=== PATIENT | male | born 1960 | race African-American/Black ===

== ENCOUNTER 2019-02-09 11:29 | Inpatient (IN) ==
[2019-02-09] MEDS ORDERED: NITROGLYCERIN SL ONE (11:54)
[2019-02-09] MEDS ORDERED: ANTIVERT PO ONE (11:54)
[2019-02-09] MEDS ORDERED: ASPIRIN PO ONE (11:54)
--- NOTE | 2019-02-09 12:12 | EKG Report ---
Test Performed on : 02/09/2019 11:44:59 AM Test Reason : DIZZY Blood Pressure : / mmHG Vent. Rate : 073 BPM Atrial Rate : 073 BPM P-R Int : 170 ms QRS Dur : 100 ms QT Int : 408 ms P-R-T Axes : 062 -26 011 degrees QTc Int : 449 ms Normal sinus rhythm. Voltage criteria for left ventricular hypertrophy Abnormal ECG When compared with ECG of 18-JAN-2019 01:12, (Unconfirmed) No significant change was found Unconfirmed Result
[2019-02-09 12:38] LABS: INR 0.94; PROTIME 12.7 Seconds (11.0-16.0)
[2019-02-09 12:39] LABS: PTT 28.4 Seconds (22.3-41.8)
--- NOTE | 2019-02-09 12:46 | Diag Imaging Result Doc PS360 ---
EXAM: CHEST-1 VIEW 02/09/2019 HISTORY: SOB TECHNIQUE: AP upright COMMENT: There is obscuration of the left hemidiaphragm. Some of this may be due to differences in projection compared to 12/01/2018 however the possibility of atelectasis or pneumonia in the left lower lobe cannot be excluded. Further evaluation with lateral may be desirable. IMPRESSION: Questionable atelectasis versus pneumonia left lower lobe. Electronically signed by Omar Kiesr 02/09/2019 12:44 PM
[2019-02-09 12:48] LABS: BASO# 0.04 X1000 (0.0-0.2); BASO% 0.5 % (0.0-0.8); EOS# 0.44 X1000 (0.0-0.7); EOS% 5.2 % (0.0-10.0); HEMATOCRIT 40.7 % (42.0-52.0); HEMOGLOBIN 13.3 g/dL (14.0-18.0); IMM GRAN# 0.03 X1000 (0.0-0.04); IMM GRAN% 0.4 % (0.0-0.5); LYMPH# 3.11 X1000 (1.2-3.4); MCH 24.4 PG (27-31); MCHC 32.7 g/dL (33-37); MCV 74.7 FL (81-99); MONO# 0.77 X1000 (0.11-0.59); MONO% 9.2 % (1.7-9.3); MPV 11.3 FL (7.4-10.4); NEUT# 4.02 X1000 (1.4-6.5); NEUT% 47.7 % (42.2-75.2); PLT 219 X1000 (130-400); RBC 5.45 XMIL (4.7-6.1); RDW 13.6 % (11.5-14.5); WBC 8.41 X1000 (4.8-10.8)
--- NOTE | 2019-02-09 12:48 | Diag Imaging Result Doc PS360 ---
EXAM: CT HEAD W/O CONTRAST 02/09/2019 HISTORY: DIZZY TECHNIQUE: This exam was performed using automated exposure control, adjustment of mA or kV according to patient size, and/or use of iterative reconstruction technique. COMMENT: There is an abnormal lucency posteriorly in the right cerebellar hemisphere which was also present on 05/08/2018. There is some subcortical white matter lucency in the posterior frontal region on the right side which was also apparently present previously. There is no evidence of mass effect, bleed, or abnormal extra-axial fluid collection. The calvarium is intact. There is a mucous retention cyst in the left frontal sinus and mucosal thickening is present in both ethmoid and maxillary sinuses. There is bilateral maxillary antral window formation. Compared to the previous study the inflammatory changes seen in the maxillary sinuses previously have markedly improved. IMPRESSION: Chronic ischemic microvascular changes. Old right cerebellar infarct. Improved sinusitis. Electronically signed by Omar Kiser 02/09/2019 12:46 PM
[2019-02-09 12:54] LABS: AGAP 11; ALB/GLOB RATIO 1.1; ALBUMIN 3.4 g/dL (3.5-5.0); ALKALINE PHOSPHATASE 176 U/L (32-122); BUN 9 mg/dL (8-22); CALCIUM 9.3 mg/dL (8.8-10.2); CHLORIDE 103 mmol/L (98-107); COSMO 279; CREATININE 0.6 mg/dL (0.7-1.2); ESTIMATED GFR > 60; GLUCOSE 117 mg/dL (70-104); GOT 64 U/L (10-34); GPT 51 U/L (10-44); POTASSIUM 3.1 mmol/L (3.5-5.1); SODIUM 140 mmol/L (136-145); TCO2 26 mmol/L (25-35); TOTAL BILIRUBIN 0.25 mg/dL (0.20-1.00); TOTAL PROTEIN 6.5 g/dL (6.3-8.3)
[2019-02-09 12:55] LABS: CK PROFILE 77 U/L (24-204)
[2019-02-09] MEDS ORDERED: MORPHINE IV ONE (13:04)
--- NOTE | 2019-02-09 14:35 | PROVIDER DOCUMENTATION ---
This chart was entered by Sri Coffey Scribe, acting as scribe for Darwin Flores MD. HPI-General Adult - General Chief Complaint: Dizziness Stated Complaint: BP PROBLEM Time Seen by Provider: 02/09/19 11:51 Source: patient Allergies/Adverse Reactions: Patient Allergies Allergy/AdvReac Type Severity Reaction Status Date / Time ampicillin Allergy ITCHING Verified 02/09/19 14:26 naproxen Allergy ITCHING Verified 02/09/19 14:26 Home Medications: Home Medication List Medication Instructions Recorded Confirmed Last Taken Type Hydrochlorothiazide 25 mg PO DAILY #30 tab 08/24/18 10/12/18 Unknown Rx Sucralfate [Carafate] 1 gm PO AC + HS #120 tab 08/24/18 10/12/18 Unknown Rx Cyclobenzaprine [Flexeril] 10 mg PO QHS PRN 10/12/18 10/12/18 Unknown History Albuterol Sulfate [Albuterol 18 gm INHALATION Q2-4H PRN PRN #1 10/14/18 Unknown Rx Sulfate Hfa] hfa.aer.ad Diltiazem C.d. [Cardizem Cd] 240 mg PO DAILY #30 cap 10/14/18 Unknown Rx Fluticasone/Vilanterol [Breo 1 ea INHALATION DAILY #1 blst.w.dev 10/14/18 Unknown Rx Ellipta 200-25 Mcg INH] Levofloxacin [Levaquin] 750 mg PO DAILY #7 tab 10/14/18 Unknown Rx Omeprazole 40 mg PO DAILY #30 capsule. 10/31/18 Unknown Rx Azithromycin [Zithromax Z-Ángel] 250 mg PO DIRECTED #1 pkg 12/01/18 Unknown Rx D-Methorphan/P-Epd/Bpm [Bromfed Dm 5 ml PO Q4H PRN #120 ml 12/01/18 Unknown Rx Liquid] Prednisone 20 mg PO DIRECTED #18 tab 12/01/18 Unknown Rx Albuterol Sulfate 2.5 mg INHALATION Q4H PRN PRN #30 12/02/18 Unknown Rx vial.neb Albuterol Sulfate [Albuterol 8.5 gm INHALATION Q4-6H PRN PRN #1 12/02/18 Unknown Rx Sulfate Hfa] hfa.aer.ad Ibuprofen [Ibu] 400 mg PO Q6HR PRN #20 tab 01/07/19 Unknown Rx Aspirin/Acetaminophen/Caffeine 1 ea PO Q6H PRN PRN #30 tab 01/08/19 Unknown Rx [Excedrin Migraine] Fluticasone 50 Mcg Nasal [place] 1 spray INTRANASAL DAILY #1 bottle 01/08/19 Unknown Rx [Flonase] Nystatin Powder [Mycostatin Powder] 1 applicatn TOP BID #1 bottle 01/08/19 Unknown Rx Sulfamethoxazole/Trimethoprim 1 ea PO BID #14 tab 01/08/19 Unknown Rx [Bactrim Ds Tablet] Levofloxacin [Levaquin] 750 mg PO DAILY #6 tab 01/18/19 Unknown Rx - History of Present Illness -Gen Adult Nature of Presenting Problems: 59 yobm presents to the ed with c/o dizziness and chest pain with mild sob. pt sts was this am and has been constant since onset. pt describes chest pain as mild pressure and can be reproduced with palpation. pt on exam is mild distress and anxious Location of Pain/Injury: reports: chest Pain Radiation: reports: no radiation Quality of Pain: reports: pressure Severity: reports: mild Onset/Duration: reports: this morning Timing: reports: still present, constant Context/Activities at Onset: reports: light activity Modifying Factors: improves with: nothing. worse with: palpation Associated Symptoms: reports: chest pain, dizziness, shortness of breath. denies: back/neck pain, cough, fever/chills, headaches, nausea, vomiting Similar Symptoms Previously?: No Recently seen or treated by another doctor?: No Review of Systems - Adult - REVIEW OF SYSTEMS - ADULT Constitutional: denies: chills, fever Eyes: reports: no symptoms reported Ears, Nose, Mouth & Throat: reports: no symptoms reported Cardiovascular: reports: see HPI. denies: palpitations, syncope Respiratory: reports: see HPI, shortness of breath. denies: cough, wheezing Gastrointestinal: denies: abdominal pain, diarrhea, nausea, vomiting Genitourinary: reports: no symptoms reported Musculoskeletal: denies: back pain, neck pain Integumentary: reports: no symptoms reported Neurological: reports: see HPI, dizziness/vertigo. denies: ataxia, headac he/migraines, loss of balance, numbness, paresthesia, seizure, slurred speech, tremors Psychiatric: reports: no symptoms reported Endocrine: reports: no symptoms reported Hematologic/Lymphatic: reports: no symptoms reported Allergic/Immunologic: reports: no symptoms reported All Other Systems: Reviewed and Negative Past History - Adult - PAST MEDICAL HISTORY-ADULT Review of Records: reports: Old Records Reviewed, Nursing Assessment Review, Medications Reviewed, Social history reviewed & non-contributory. Major Childhood Illnesses: reports: denies history Cardiovascular: reports: HTN, [place] Respiratory: reports: denies history Gastrointestinal: reports: pancreatitis Genitourinary: reports: denies history Musculoskeletal: reports: arthritis, other (gout) Hand Dominance: Right Handed Neurological: reports: CVA Endocrine/Immune: reports: Diabetes Other Conditions: reports: denies history - PRIOR SURGERIES/PROCEDURES Surgical/Procedure History: reports: reviewed, not pertinent - IMMUNIZATION STATUS Childhood Immunizations: See Nurse Assessment Flu Vaccine: See Nurse Assessment - FAMILY HISTORY Family History: reviewed, not pertinent - SOCIAL HISTORY Smoking: cigarettes, less than 1 pack/day Provider spent 3-5 mins advising pt. on dangers of tobacco.: Discussed manners to quit use, and f/u contacts for add'l counseling. Substance Use: alcohol Alcohol Use Frequency: twice a week Number of drinks per typical drinking period:: 3-4 drinks Living Situation: family Physical Exam-General - PHYSICAL EXAM-ADULT Initial Vital Signs Reviewed: Yes - CONSTITUTIONAL General Appearance: appears well, alert, mild distress, obese, anxious - EYES Eyes: PERRL/EOMI, pink conjunctivae - HEAD, EARS, NOSE, MOUTH & THROAT HENMT: moist mucous membranes - NECK Neck: non-tender, full range of motion, supple, normal inspection - RESPIRATORY Respiratory: lungs clear, normal breath sounds - CARDIOVASCULAR Cardiovascular: normal peripheral pulses, regular rate, rhythm, other (c/o mild chest pain) - CHEST (BREASTS) Chest/Breast: tenderness (mid sternal) - GASTROINTESTINAL (ABDOMEN) Abdominal Exam: normal bowel sounds, non tender, soft - GENITOURINARY Male Genitalia: deferred Rectal Exam: deferred Hemoccult Exam: deferred - LYMPHATIC Lymphatic: no adenopathy - MUSCULOSKELETAL Back Exam: normal inspection, no CVA tenderness, no vertebral tenderness Extremity: normal range of motion, non-tender, normal gait, normal inspection - SKIN Integumentary: normal color, normal turgor, warm/dry - NEUROLOGIC Neurologic: grossly normal, no motor/sensory deficits - PSYCHIATRIC Psych/Mental Status: normal mood/affect, normal thought content, normal thought process, oriented x 3, anxious Progress - PLAN OF CARE/RESULTS Progress/Plan/Lab Results: Vital Signs - 8 hr 02/09/19 11:42 02/09/19 12:21 Temperature 97.6 F Pulse Rate 75 Pulse Rate [Sitting] 71 Pulse Rate [Standing] 76 Pulse Rate [Supine] 69 Respiratory Rate 20 Blood Pressure 161/91 Blood Pressure [Sitting] 138/71 Blood Pressure [Standing] 131/64 Blood Pressure [Supine] 151/83 O2 Sat by Pulse Oximetry 98 Orders Category Date Time Status Cardiac Monitoring DIRECTED Care 02/09/19 11:54 Active Finger Stick Blood Sugar (ED) DIRECTED Care 02/09/19 11:53 Active Orthostatic Vital Signs NOW Care 02/09/19 11:53 Active Oxygen Therapy- ED Nursing DIRECTED Care 02/09/19 11:54 Active Saline Loc NOW Care 02/09/19 11:53 Active Saline Loc NOW Care 02/09/19 11:54 Active CHEST-1 VIEW [RAD] Stat Exams 02/09/19 11:[address] HEAD W/O CONTRAST [CT] Stat Exams 02/09/19 11:53 Ordered CBC WITH ELECTRONIC DIFF [HEME] Stat Lab 02/09/19 12:05 Results CK PROFILE [SP CHEM] Stat Lab 02/09/19 12:05 Received COMPREHENSIVE METABOLIC PANEL [CHEM] Stat Lab 02/09/19 12:05 Received PRO B-NATRIURETIC PEPTIDE Stat Lab 02/09/19 12:05 Received PROTIME WITH INR [COAG] Stat Lab 02/09/19 12:05 Received PTT [COAG] Stat Lab 02/09/19 12:05 Received TROPONIN T Stat Lab 02/09/19 12:05 Received Aspirin Med 02/09/19 11:54 Discontinued 325 mg PO NOW ONE Meclizine [Antivert] Med 02/09/19 11:54 Discontinued 25 mg PO NOW ONE Nitroglycerin Sl [Nitroglycerin] Med 02/09/19 11:54 Discontinued 0.4 mg SL NOW ONE CP/SOB/Palp >45 yrs of Age Stat Oth 02/09/19 11:54 Ordered EKG [EKG] Stat Ther 02/09/19 11:54 Draft Result Diagrams: 02/09/19 12:05 02/09/19 12:05 - REASSESSMENT Reassessment #1 Time Reassessed: 12:49 (pt is resting in bed and still c/o chest pain and dizziness) Status: unchanged Reassessment Comment: dr flores at bedside Reassessment #2 Time Reassessed: 14:34 (pt is in bed and dr flores speaking with pt about poc) Status: unchanged - EKG 1 Time of EKG reading by physician:: 11:44 EKG Read and Signed by:: Darwin Flores EKG Interpretation (*Must complete 3 of following elements*): Abnormal Rate: 73 Rhythm: nsr [place]: normal QRS: LVH MI Interval: normal ST Wave: normal - XRAY 1 XRAY: Bilateral XRAY Study: Chest Impression: See EMR Report (EXAM: CHEST-1 VIEW 02/09/2019 HISTORY: SOB TECHNIQUE: AP upright COMMENT: There is obscuration of the left hemidiaphragm. Some of this may be due to differences in projection compared to 12/01/2018 however the possibility of atelectasis or pneumonia in the left lower lobe cannot be excluded. Further evaluation with lateral may be desirable. IMPRESSION: Questionable atelectasis versus pneumonia left lower lobe. Electronically signed by Omar Kiser 02/09/2019 12:44 PM 02/09/19 1244 Interpreting Physician: Omar Kiser MD Dictated Date/Time: 02/09/19 1243 cc: Darwin Flores MD; Andi Neal Jr, MD) - CT/MRI 1 CT Study: Head Impression: See EMR Report (EXAM: CT HEAD W/O CONTRAST 02/09/2019 HISTORY: DIZZY TECHNIQUE: This exam was performed using automated exposure control, adjustment of mA or kV according to patient size, and/or use of iterative reconstruction technique. COMMENT: There is an abnormal lucency posteriorly in the right cerebellar hemisphere which was also present on 05/08/2018. There is some subcortical white matter lucency in the posterior frontal region on the right side which was also apparently present previously. There is no evidence of mass effect, bleed, or abnormal extra-axial fluid collection. The calvarium is intact. There is a mucous retention cyst in the left frontal sinus and mucosal thickening is present in both ethmoid and maxillary sinuses. There is bilateral maxillary antral window formation. Compared to the previous study the inflammatory changes seen in the maxillary sinuses previously have markedly improved. IMPRESSION: Chronic ischemic microvascular changes. Old right cerebellar infarct. Improved sinusitis. Electronically signed by Omar Kiser 02/09/2019 12:46 PM 02/09/19 1246 Interpreting Physician: Omar Kiser MD Dictated Date/Time: 02/09/19 1244 cc: Darwin Flores MD; Andi Neal Jr, MD) - CONSULTS/PCP/HOSPITALIST Notification #1 *Consult/PCP/Hospitalist*: dr neal PCP group Time Discussed: 14:01 Consult Disposition: other (phone consult) #2 Consult: dr neal Time Discussed: 14:34 Consult Disposition: Admit Departure - Departure Date of Disposition Decision: 02/09/19 Time of Disposition Decision: 13:13 DIAGNOSIS: Dizziness, Tobacco use disorder Chest pain Qualifiers: Chest pain type: unspecified Qualified Code(s): R07.9 - Chest pain, unspecified Disposition: ADMITTED INPATIENT 09 Certified Medical Emergency: Emergent Condition: Stable Referrals and Follow-Ups: Andi Neal Jr, MD [Primary Care Provider] - - Critical Care Note This patient required my direct & personal management of CC.: No Attestation - Physician/ LASHONDA Attestation Patient care was provided by Advanced Practice Provider:: No The physician spent face to face time with patient:: Yes Advanced Practice Provider documentation review:: Supervising physician onsite and consulted in the evaluation and care of this patient. The physician did have a face to face encounter with the patient. This chart was documented by the indicated scribe, (rSi Coffey Scribe) and accurately reflects the services I performed and decisions made by me, Darwin Flores MD, as attested by the provider's signature.
[2019-02-09] MEDS ORDERED: ALBUTEROL NEB INH PRN (15:22)
--- NOTE | 2019-02-09 15:56 | CARDIOLOGY CONSULTATION ---
DATE: 02/09/2019 HISTORY OF PRESENT ILLNESS: Mr. Pringle is a 59-year-old, -[place] gentleman with history of obesity, hypertension, diabetes, COPD, who had an episode of elevated blood pressure, felt dizzy. He fell, but did not lose consciousness. He felt weak after that, came to the emergency room, and he had an episode of chest pain in the emergency room and was subsequently admitted. His electrocardiogram revealed normal sinus rhythm, nonspecific ST-T changes. He was pain-free at the time of my examination. Prior to this, he denies any chest pain. However, he has dyspnea on exertion. He walks about a block and then he is short of breath. He also has no orthopnea or paroxysmal nocturnal dyspnea. He has significant hypertension. He is on multiple medications, which he took this morning as per schedule. He also has diabetes. There is no history of latricia syncopal episode. REVIEW OF SYSTEM: General: A 14 point review of systems was done. Gastrointestinal system: There is no history of nausea. There is no history of hematemesis or melena. Central nervous system: No focal weakness to suggest a CVA or TIA. Genitourinary system: There is no dysuria or hematuria. PAST MEDICAL HISTORY: 1. Hypertension. 2. Diabetes. 3. COPD. 4. Question regarding pancreatitis. 5. Questionable TIA in the past. 6. Gout. 7. Gastroesophageal reflux disease. 8. He has had right shoulder surgery in the past. Was admitted with cellulitis in 2018 with upper extremity that required drainage of an abscess. 9. He had a CT scan done which revealed moderate calcification in the coronary arteries, ectasia of the ascending aorta, small pericardial effusion. Atelectasis versus fibrosis was noted. HOME MEDICATIONS: Include sucralfate 1 g p.o. b.i.d., Flexeril inhalers, omeprazole 40, nystatin powder as needed, amlodipine 10, Breo Ellipta inhalers, fosinopril 40, indapamide 2.5, metoprolol 100 b.i.d., Pravastatin 40, clonidine TTS patch, TTS 3 one every 7 days, insulin as directed. ALLERGIES: He is allergic to ampicillin and Naprosyn. PHYSICAL EXAMINATION: Cardiovascular System: Blood pressure was 180/110. First and second heart sounds were heard. There was no murmurs or rhonchi. Respiratory System: Normal air entry. There is no crepitations or rhonchi. Abdomen: Soft, nontender. There was no guarding or rigidity. Bowel sounds were heard. Central nervous system: Alert and was moving all 4 extremities. Extremities: Examination of extremities revealed mild pedal edema. HEENT: Atraumatic, normocephalic. Pupils were equal and reacting to light. LABORATORY EXAMINATION: Two sets of cardiac enzymes were negative. Sodium 140, potassium 3.1. BUN 9, creatinine 0.6. ALT 51, alkaline phosphatase 176. Hemoglobin 13.3, hematocrit 40, platelet count of 219, WBC 8.4. ASSESSMENT AND PLAN: 1. Mr. Luis Pringle is a 59-year-old, -[place] gentleman with history of hypertension, diabetes, gout and chronic obstructive pulmonary disease. He is admitted with dizziness and elevated blood pressure. When he came to the emergency room, he had an episode of chest discomfort. Two sets of cardiac enzymes were negative. We will get a third set of cardiac enzymes. 2. We will get an echocardiogram to assess cardiac and valvular function. As far as chest pain is concerned, he has had coronary calcifications by computed tomography scan of his lung earlier this year. Given his symptoms, past medical history, we will set him up to undergo a Lexiscan Cardiolite stress test to rule out ischemia. 3. Hypertension. Continue with his home medications. 4. Diabetes. Continue with his home medications. He also has gout and takes allopurinol. I have not made any changes to his medication. Thank you for the consult. cc: MD Andi Gallego Jr, MD
[2019-02-09] MEDS: CARAFATE PO SCH ×2 (16:21→21:41)
[2019-02-09] MEDS ORDERED: MORPHINE IV PRN (17:12)
[2019-02-09] MEDS: BREO ELLIPTA 200/25 MCG INH INH SCH ×2 (17:31→21:16)
[2019-02-09] MEDS: NITROGLYCERIN TOP SCH (18:04)
--- NOTE | 2019-02-09 20:47 | HISTORY AND PHYSICAL ---
CHIEF COMPLAINT: Dizziness and chest pain. PRESENT ILLNESS: The patient is a 59-year-old, male who was unloading some groceries around 10:00 or 10:30 this morning and started getting some dizziness with some chest tightness. He got progressively worse. He called an ambulance, was brought to the emergency room. He did break out in a sweat. The chest pain initially was sharp like needle sticking in the substernal area and then got more severe as time went on. It stayed until he was given some nitroglycerin in the emergency room and then all of his symptoms including his dizziness resolved. He has had an admission for chest pain in the past. He has COPD. The workup included an echocardiogram, CT scan of the coronary vessels with a calcium score, which did show moderate load. PAST MEDICAL HISTORY: Includes diabetes, hypertension, coronary artery disease and gout. MEDICATIONS: Please see medication list in chart. He is on several blood pressure medications, and he is on insulin for his diabetes. He quit tobacco and alcohol about 5 weeks ago. ALLERGIES: Include ampicillin and naproxen. SOCIAL HISTORY: Quit using tobacco and alcohol recently. He has 2 children in their teens in good health. Mother had some sort of cancer, and he thinks it was colon cancer. Father had to have a pacemaker. REVIEW OF SYSTEMS: Neurological: Denies headaches or seizures. Did have dizziness earlier. No visual or hearing problems. Pulmonary: He has had some shortness of breath but had COPD, did have some shortness of breath earlier today. No cough or wheezing. Cardiovascular: Did have chest pain earlier today as described above. Denies edema, orthopnea, PND. GI: Denies abdominal pain, hematochezia, melena, constipation, diarrhea. : Denies any difficulty with urination. Endocrine: Does have diabetes. Psychiatric: Denies depression or anxiety. PHYSICAL EXAMINATION: VITAL SIGNS: Blood pressure 161/91, respirations 20, pulse 75, temperature 97.6 degrees Fahrenheit. HEENT: Normocephalic. EOMS intact. PERRLA. Throat clear. Fundi not seen well due to constriction of pupils. NECK: Supple without thyromegaly, lymphadenopathy, or carotid bruits. LUNGS: Clear to auscultation and percussion without rhonchi, rales, or wheezes. HEART: Regular rate and rhythm without murmurs, gallops, or friction rubs. ABDOMEN: Soft. Active bowel sounds. No organomegaly or tenderness. NEUROLOGIC EXAM: Intact grossly. Reflexes 1+ all. IMAGING: Chest x-ray shows questionable atelectasis versus pneumonia left lower lobe, but he has had no cough with this. This is more likely to be atelectasis. LABORATORY DATA: White count is 8410, hemoglobin 13.3, hematocrit 40.7. He does have microcytic indices. Potassium is a little low at 3.1. Rest of blood work is essentially normal. Alkaline phosphatase was 176, AST 64, ALT 51. He does have some slightly elevated liver function tests, which I believe he has had in the past. ProBNP is 383. Cardiac enzymes so far are negative. ASSESSMENT: 1. Chest pain. 2. Coronary artery disease. 3. Dizziness, now resolved. 4. Hypokalemia. PLAN: We will rule out [place]. I have talked with cardiology. I feel that he probably would benefit with having a left heart catheterization. We will replace potassium. Please see orders. cc: Andi Neal Jr, MD
[2019-02-09] MEDS ORDERED: KLOR-CON PO SCH (21:00)
[2019-02-09] MEDS ORDERED: FLEXERIL PO SCH (21:00)
[2019-02-09] MEDS: LOPRESSOR PO SCH (21:41)
[2019-02-10] MEDS: MYCOSTATIN POWDER TOP SCH ×2 (05:17→13:17)
[2019-02-10] MEDS: NITROGLYCERIN TOP SCH ×4 (05:17→15:54)
[2019-02-10 06:45] LABS: BASO% 0.5 % (0.0-0.8); EOS# 0.45 X1000 (0.0-0.7); EOS% 5.7 % (0.0-10.0); HEMATOCRIT 41.6 % (42.0-52.0); HEMOGLOBIN 13.4 g/dL (14.0-18.0); IMM GRAN% 0.3 % (0.0-0.5); LYMPH# 2.44 X1000 (1.2-3.4); LYMPH% 30.7 % (20.5-51.1); MCH 24.1 PG (27-31); MCHC 32.2 g/dL (33-37); MCV 74.7 FL (81-99); MONO# 0.82 X1000 (0.11-0.59); MONO% 10.3 % (1.7-9.3); MPV 11.1 FL (7.4-10.4); NEUT# 4.18 X1000 (1.4-6.5); NEUT% 52.5 % (42.2-75.2); PLT 236 X1000 (130-400); RBC 5.57 XMIL (4.7-6.1); RDW 13.7 % (11.5-14.5); WBC 7.95 X1000 (4.8-10.8)
[2019-02-10 06:46] LABS: BASO# 0.04 X1000 (0.0-0.2); IMM GRAN# 0.02 X1000 (0.0-0.04)
[2019-02-10 07:01] LABS: AGAP 10; ALB/GLOB RATIO 0.9; ALBUMIN 3.2 g/dL (3.5-5.0); ALKALINE PHOSPHATASE 210 U/L (32-122); BUN 11 mg/dL (8-22); CALCIUM 8.8 mg/dL (8.8-10.2); CHLORIDE 101 mmol/L (98-107); COSMO 287; CREATININE 0.7 mg/dL (0.7-1.2); ESTIMATED GFR > 60; GLUCOSE 338 mg/dL (70-104); GOT 58 U/L (10-34); GPT 52 U/L (10-44); MAGNESIUM 1.7 mg/dL (1.5-2.7); SODIUM 137 mmol/L (136-145); TCO2 26 mmol/L (25-35); TOTAL BILIRUBIN 0.18 mg/dL (0.20-1.00); TOTAL PROTEIN 6.6 g/dL (6.3-8.3)
--- NOTE | 2019-02-10 08:47 | PROGRESS NOTE ---
DATE: 02/10/2019 SUBJECTIVE: The patient says he is feeling a little better. He has had a little bit of a cough. We know he has got some COPD. He has breathing treatments ordered. We will get him on some incentive spirometry. Says his chest pain has about gone away. OBJECTIVE: Blood pressure is 168/90, pulse is 58, respirations 17, temperature 98.2 degrees Fahrenheit.HEENT: Normocephalic. EOMS intact. PERRLA. Throat clear. Lungs: Clear to auscultation and percussion without rhonchi, rales, or wheezes. Heart: Regular rate and rhythm without murmurs, gallops, friction rubs. Abdomen: Soft. Active bowel sounds. No organomegaly or tenderness. Neurological: Intact grossly. Potassium has been 3.1 yesterday. I gave him supplemental potassium. Potassium today is 4.0. ASSESSMENT: 1. Chest pain. 2. Coronary artery disease. 3. Chronic obstructive pulmonary disease. 4. Diabetes mellitus. 5. Hypertension. 6. Hypokalemia now resolved. PLAN: Plan to do a heart catheterization. We will start him on some incentive spirometry. Not sure whether he will have his heart catheterization here at [facility] or whether he will have to be transferred to [facility]. Cardiology is working on this. cc: Andi Neal Jr, MD
[2019-02-10] MEDS ORDERED: PRILOSEC PO SCH (09:00)
[2019-02-10] MEDS ORDERED: PRAVACHOL PO SCH ×2 (09:00→21:00)
[2019-02-10] MEDS: BREO ELLIPTA 200/25 MCG INH INH SCH ×2 (09:03→16:14)
[2019-02-10] MEDS ORDERED: HEPARIN 1000 UNITS/NS 2,000 UNIT/1,000 ML IV.SOLN ONE (11:35)
[2019-02-10] MEDS ORDERED: XYLOCAINE 1% ONE (11:35)
--- NOTE | 2019-02-10 12:55 | ECHO REPORT ---
ORDER DATE: 02/10/2019 INTERPRETING PHYSICIAN: Stephen Madrigal MD. ECHOCARDIOGRAPHIC MEASUREMENTS: 1. Interventricular septum 1.8. 2. Left ventricular posterior wall 1.2. 3. Diastolic diameter 4.7. 4. Left atrium 3.9. 5. Aorta 3.6. FINDINGS: 1. Aortic valve leaflets are trileaflet. 2. Mitral valve was normal. Tricuspid valve was normal. Pulmonic valve was normal. There is mild mitral regurgitation, mild tricuspid regurgitation. Peak velocity across the tricuspid valve was 2.2 m/sec. Pulmonary artery systolic pressure of 28 mmHg. By Doppler studies, there is no aortic stenosis or regurgitation. 3. Normal left ventricular cavity size. Estimated ejection fraction of 60%. There is mild diastolic dysfunction, there is left ventricular hypertrophy. 4. There is no pericardial effusion or obvious intracardiac mass or thrombus. cc: MD Nyla Gallego PA Roger H. Moss Jr, MD
[2019-02-10] MEDS: HUMULIN R SUBQ SCH ×2 (13:15→15:52)
[2019-02-10] MEDS: CARAFATE PO SCH ×3 (13:15→16:35)
[2019-02-10] MEDS: ASPIRIN PO SCH ×2 (13:16→16:32)
[2019-02-10] MEDS: NORVASC PO SCH ×2 (13:17→16:32)
[2019-02-10] MEDS: LOPRESSOR PO SCH ×2 (13:17→16:32)
[2019-02-10] MEDS: LOZOL PO SCH ×2 (13:17→16:32)
[2019-02-10] MEDS: MONOPRIL PO SCH ×2 (13:17→16:32)
[2019-02-10] MEDS ORDERED: VERSED ONE (13:42)
[2019-02-10] MEDS ORDERED: MORPHINE ONE (13:42)
[2019-02-10] MEDS ORDERED: CLAVE TWINSITE 32 IN 11959 ONE (13:43)
[2019-02-10] MEDS ORDERED: NS 1,000 ML ONE (13:43)
[2019-02-10] MEDS ORDERED: ANESTHESIA PB SET 88 IN 5742 ONE (13:43)
--- NOTE | 2019-02-10 16:06 | EKG Report ---
Test Performed on : 02/10/2019 3:30:44 PM Test Reason : S/P HEART CATH Blood Pressure : / mmHG Vent. Rate : 057 BPM Atrial Rate : 057 BPM P-R Int : 178 ms QRS Dur : 098 ms QT Int : 426 ms P-R-T Axes : 056 -23 -03 degrees QTc Int : 414 ms Sinus bradycardia. Moderate voltage criteria for LVH, may be normal variant Borderline ECG When compared with ECG of 09-FEB-2019 11:44, (Unconfirmed) Inverted T waves have replaced nonspecific T wave abnormality in Inferior leads Confirmed by Nadia Richardson MD ([id number]) on 02/11/2019 6:19:47 AM
[2019-02-10 19:36] VITALS: BP 166/95
--- NOTE | 2019-02-11 14:22 | DISCHARGE SUMMARY ---
ADMISSION DATE: 02/09/2019 DISCHARGE DATE: 02/10/2019 CONSULTATION: Dr. Madrigal and Dr. Shields for cardiology. HISTORY OF PRESENT ILLNESS: The patient is a 59-year-old, who was unloading some groceries in mid morning got dizzy with some chest tightness that got progressively worse. He came to the hospital, was given nitroglycerin and his dizziness and chest discomfort went away. He had a CTA of his coronary vessels with calcium score showing about 70% blockage around the left main. This was done in September of this year. The patient is also a diabetic with hypertension with known coronary artery disease and hypokalemia that resolved after treatment here in the hospital with a potassium. 3.1 that came back to 4.0. The patient had a heart catheterization yesterday that shows some occlusion of some diagonal branches and it was felt that he needed stent placement. He was transferred to [facility] the evening of 02/10/2019. The patient's chest pain had gone away for the most part, PLAN: We will see the patient back after he gets out of the hospital at [place]. FINAL DIAGNOSES: 1. Chest pain. 2. Coronary artery disease. 3. Dizziness. 4. Diabetes mellitus. 5. Hypertension. 6. Hyperlipidemia. cc: Andi Neal Jr, MD
--- NOTE | 2019-03-03 08:19 | CARDIAC CATH REPORT ---
DATE: 02/10/2019 PROCEDURE PERFORMED: Left heart catheterization with selective coronary angiography and left ventriculography. ENTRY SITE: Right femoral artery. CATHETERS USED: 5-Luxembourger JL4, JR4, and angled pigtail. TECHNIQUE: After intravenous sedation with morphine and Versed, local anesthesia with lidocaine was applied over right femoral artery. Arterial access was established with placement of a 5- Luxembourger sheath in right femoral artery using modified Seldinger technique. Selective coronary angiography was performed followed by left heart catheterization and left ventriculography. Upon completion of procedure, arterial sheath was removed from right femoral artery and hemostasis facilitated with manual pressure. Patient tolerated the procedure without apparent complications. FINDINGS: Hemodynamics: Aortic pressure 170/86. Left ventricular pressure 166 over EDP of 13. Comments on hemodynamics: There is no significant gradient across aortic valve demonstrated on pullback from the left ventricle. ANGIOGRAPHY: 1. Left ventriculogram: The left ventricle is of normal size without wall motion abnormality evident on SUMMERS projection. Estimated left ventricular ejection fraction appears to be at least 65%. No regional wall motion abnormalities are evident on SUMMERS projection. There is no significant mitral regurgitation. 2. Left main coronary: Left main coronary is free of significant coronary stenosis. 3. Left anterior descending coronary: Left anterior descending coronary demonstrates a mild (20% to 30%) plaque very proximally. The first diagonal branch is a medium to large vessel and demonstrates a severe (80%) focal stenosis. 4. Left circumflex: The left circumflex coronary and its branches are free of significant coronary stenosis. 5. Right coronary: Dominant right coronary and its branches are free of significant coronary stenosis. CONCLUSIONS: 1. Normal left ventricular systolic function without regional wall motion abnormality evident on SUMMERS projection. 2. Right dominant coronary anatomy as described with mild atherosclerotic plaque in proximal left anterior descending coronary, and severe stenosis in medium to large diagonal branch. cc: MD Andi Ordoñez Jr, MD MTDD
== END 2019-02-10 20:00 | disposition short-term general hospital (02) | DRG 287 ==
LOC: ED 11:29 → 4N 15:01 → 2N 02-10 15:17
PROVIDERS: ADMIT Emergency Medicine; ATTEND Emergency Medicine

== ENCOUNTER 2019-03-07 14:02 | Inpatient (IN) ==
--- NOTE | 2019-03-07 14:51 | PROVIDER DOCUMENTATION ---
HPI-General Adult - General Chief Complaint: Abdominal Pain Stated Complaint: ABD PAIN Time Seen by Provider: 03/07/19 14:26 Source: patient Allergies/Adverse Reactions: Patient Allergies Allergy/AdvReac Type Severity Reaction Status Date / Time ampicillin Allergy ITCHING Verified 03/07/19 17:46 naproxen Allergy ITCHING Verified 03/07/19 17:46 Home Medications: Home Medication List Medication Instructions Recorded Confirmed Last Taken Type Cyclobenzaprine [Flexeril] 10 mg PO TID PRN 10/12/18 03/07/19 Unknown History Albuterol Sulfate [Albuterol 18 gm INHALATION Q2-4H PRN PRN #1 10/14/18 03/07/19 Unknown Rx Sulfate Hfa] hfa.aer.ad Amlodipine [Norvasc] 1 tab PO DAILY 02/09/19 03/07/19 03/07/19 History Clonidine Patch [Olgyuklm-Qhp-7] 1 ea TD Q7D 02/09/19 03/07/19 03/07/19 History Fluticasone/Vilant 200/25 INH 2 inh INH TID 02/09/19 03/07/19 Unknown History [Breo Ellipta 200/25 Mcg INH] Insulin Aspart [Novolog Flexpen] See Protocol SQ DIRECTED 02/09/19 03/07/19 Unknown History Metoprolol [Lopressor] 100 mg PO DAILY 02/09/19 03/07/19 03/07/19 History Doxycycline Hyclate 100 mg PO BID #20 cap 02/24/19 03/07/19 03/07/19 Rx ATORVAstatin [Lipitor] 40 mg PO DAILY 03/01/19 03/07/19 03/07/19 History Insulin Glargine,Hum.rec.anlog 30 units SQ BID 03/01/19 03/07/19 Unknown History [Lantus Solostar] Aspirin 1 tab PO DAILY 03/07/19 03/07/19 1 Week Ago History ~02/28/19 Diltiazem HCl [Dilt-Xr] 1 cap PO BID 03/07/19 03/07/19 03/07/19 History Fosinopril Sodium 1 tab PO BID 03/07/19 03/07/19 03/07/19 History - History of Present Illness -Gen Adult Nature of Presenting Problems: This is a 59yoM who presents with CC of abdominal pain.l The pain has been pr esent for 2 days. The patient notes the pain specifically after taking all of his medications. The patient describes the pain around his belly button with some radiation to his right flank. Location of Pain/Injury: reports: abdomen Pain Radiation: reports: flank (R) Quality of Pain: reports: pressure Onset/Duration: reports: 2 days ago Timing: reports: still present Context/Activities at Onset: reports: other (worse with taking medications) Associated Symptoms: reports: nausea. denies: fever/chills Review of Systems - Adult - REVIEW OF SYSTEMS - ADULT Constitutional: denies: fever Eyes: reports: no symptoms reported. denies: eye pain Ears, Nose, Mouth & Throat: reports: no symptoms reported. denies: ear pain Cardiovascular: reports: no symptoms reported. denies: chest pain Respiratory: reports: no symptoms reported Gastrointestinal: reports: abdominal pain, nausea. denies: diarrhea, rectal bleeding Genitourinary: denies: dysuria Musculoskeletal: reports: other (flank pain) Integumentary: reports: no symptoms reported Neurological: reports: no symptoms reported. denies: headache/migraines Psychiatric: reports: no symptoms reported Endocrine: reports: no symptoms reported Hematologic/Lymphatic: reports: no symptoms reported Allergic/Immunologic: reports: no symptoms reported Past History - Adult - PAST MEDICAL HISTORY-ADULT Review of Records: reports: Old Records Reviewed Major Childhood Illnesses: reports: denies history Cardiovascular: reports: HTN, [place] Respiratory: reports: denies history Gastrointestinal: reports: pancreatitis Obstetrical/Gynecological: reports: denies history Genitourinary: reports: denies history Musculoskeletal: reports: arthritis, other (gout) Neurological: reports: CVA Endocrine/Immune: reports: Diabetes Other Conditions: reports: denies history - PRIOR SURGERIES/PROCEDURES Surgical/Procedure History: reports: reviewed, not pertinent - IMMUNIZATION STATUS Childhood Immunizations: See Nurse Assessment Flu Vaccine: See Nurse Assessment - FAMILY HISTORY Family History: reviewed, not pertinent Physical Exam-General - PHYSICAL EXAM-ADULT Initial Vital Signs Reviewed: Yes - CONSTITUTIONAL General Appearance: appears well, alert, no apparent distress - EYES Eyes: negative: scleral icterus - HEAD, EARS, NOSE, MOUTH & THROAT HENMT: normocephalic/atraumatic, moist mucous membranes - RESPIRATORY Respiratory: crackles (mild RLL). negative: respiratory distress - CARDIOVASCULAR Cardiovascular: regular rate, rhythm, other (trace LE edema) - GASTROINTESTINAL (ABDOMEN) Abdominal Exam: guarding, tenderness (diffuse), Rovsing's sign - MUSCULOSKELETAL Back Exam: CVA tenderness (right) - SKIN Integumentary: normal color - NEUROLOGIC Neurologic: grossly normal - PSYCHIATRIC Psych/Mental Status: normal mood/affect, normal thought content, normal thought process Progress - PLAN OF CARE/RESULTS Progress/Plan/Lab Results: Vital Signs - 8 hr 03/07/19 14:19 Temperature 98.0 F Pulse Rate 95 H Respiratory Rate 17 Blood Pressure 149/83 O2 Sat by Pulse Oximetry 97 Orders Category Date Time Status CBC WITH ELECTRONIC DIFF [HEME] Stat Lab 03/07/19 14:39 Uncollected COMPREHENSIVE METABOLIC PANEL [CHEM] Stat Lab 03/07/19 14:39 Uncollected LACTATE, PLASMA [CHEM] Stat Lab 03/07/19 14:39 Uncollected LIPASE [CHEM] Stat Lab 03/07/19 14:39 Uncollected TROPONIN T Stat Lab 03/07/19 14:39 Ordered Result Diagrams: 03/07/19 16:30 03/07/19 16:30 - REASSESSMENT Reassessment #1 Status: improving (Discussed patient with hospitalist team who has accepted the patient.) Departure - Departure Date of Disposition Decision: 03/07/19 Time of Disposition Decision: 22:21 DIAGNOSIS: Pancreatitis Qualifiers: Chronicity: chronic Pancreatitis type: unspecified pancreatitis type Qualified Code(s): K86.1 - Other chronic pancreatitis Abdominal pain Qualifiers: Abdominal location: generalized Qualified Code(s): R10.84 - Generalized abdominal pain Disposition: ADMITTED INPATIENT 09 Certified Medical Emergency: Emergent Condition: Fair Referrals and Follow-Ups: Andi Neal Jr, MD [Primary Care Provider] - - Critical Care Note This patient required my direct & personal management of CC.: No Attestation - Physician/ LASHONDA Attestation Patient care was provided by Advanced Practice Provider:: No The physician spent face to face time with patient:: Yes Advanced Practice Provider documentation review:: Supervising physician onsite and consulted in the evaluation and care of this patient. The physician did have a face to face encounter with the patient.
[2019-03-07 16:56] LABS: BASO# 0.03 X1000 (0.0-0.2); BASO% 0.3 % (0.0-0.8); EOS% 3.9 % (0.0-10.0); HEMATOCRIT 41.8 % (42.0-52.0); HEMOGLOBIN 13.5 g/dL (14.0-18.0); IMM GRAN# 0.03 X1000 (0.0-0.04); IMM GRAN% 0.3 % (0.0-0.5); LYMPH# 3.14 X1000 (1.2-3.4); LYMPH% 30.3 % (20.5-51.1); MCH 23.7 PG (27-31); MCHC 32.3 g/dL (33-37); MCV 73.3 FL (81-99); MONO# 1.06 X1000 (0.11-0.59); MONO% 10.2 % (1.7-9.3); NEUT# 5.71 X1000 (1.4-6.5); PLT 263 X1000 (130-400); RDW 14.1 % (11.5-14.5); WBC 10.37 X1000 (4.8-10.8)
[2019-03-07 17:02] LABS: URINE SOURCE CLEAN CATCH
[2019-03-07 17:10] LABS: BILIRUBIN URINE NEGATIVE (NEGATIVE); BLOOD URINE MODERATE (NEGATIVE); COLOR YELLOW; GLUCOSE URINE >1000 mg/dL (NEGATIVE); KETONE URINE NEGATIVE (NEGATIVE); LEUKOCYTES URINE LARGE (NEGATIVE); NITRITE URINE NEGATIVE (NEGATIVE); PROTEIN URINE 300 mg/dL (NEGATIVE); SP GRAVITY URINE 1.028; TURBIDITY URINE HAZY (CLEAR); UROBILINOGEN URINE NORMAL (NORMAL)
[2019-03-07 17:12] LABS: UR EPITHELIAL CELLS <10 /HPF (<10); URINE BACTERIA 2+ /HPF; URINE RBC TNTC /HPF (<10); URINE WBC TNTC /HPF (<10)
[2019-03-07 17:14] LABS: AGAP 13; ALBUMIN 3.8 g/dL (3.5-5.0); ALKALINE PHOSPHATASE 192 U/L (32-122); BUN 12 mg/dL (8-22); CALCIUM 9.8 mg/dL (8.8-10.2); CHLORIDE 98 mmol/L (98-107); COSMO 274; CREATININE 0.9 mg/dL (0.7-1.2); ESTIMATED GFR > 60; GLUCOSE 134 mg/dL (70-104); GOT 36 U/L (10-34); GPT 51 U/L (10-44); LIPASE 32 U/L (13-60); SODIUM 136 mmol/L (136-145); TCO2 25 mmol/L (25-35); TOTAL BILIRUBIN 0.39 mg/dL (0.20-1.00); TOTAL PROTEIN 7.7 g/dL (6.3-8.3)
--- NOTE | 2019-03-07 18:56 | Diag Imaging Result Doc PS360 ---
CT ABDOMEN/PELVIS W/O CONTRAST - 03/07/2019 INDICATION: Abdominal Pain and flank pain COMPARISON: 03/01/2019 FINDINGS: There is worsening peripancreatic inflammation compatible with pancreatitis. Stable small calcified gallstones in the gallbladder. The kidneys and urinary tract are normal. No bowel obstruction or inflammation. Normal appendix. Urinary bladder, prostate, and rectum are normal. IMPRESSION: Worsening pancreatic inflammation indicating pancreatitis. Small gallstones in the gallbladder are stable from prior. This exam was performed using automated exposure control, adjustment of mA or kV according to patient size, and/or use of iterative reconstruction technique Electronically signed by Go Sethi 03/07/2019 6:54 PM
[2019-03-07] MEDS ORDERED: NS 1,000 ML IV ONE (20:05)
[2019-03-07] MEDS ORDERED: MORPHINE IV ONE (20:05)
[2019-03-07] MEDS ORDERED: ZOFRAN IV ONE (20:50)
[2019-03-08] MEDS ORDERED: CATAPRES-TTS-3 TD SCH (00:15)
[2019-03-08] MEDS ORDERED: MORPHINE IV PRN (00:15)
[2019-03-08] MEDS ORDERED: ZOFRAN IV PRN (00:15)
[2019-03-08] MEDS ORDERED: FLU VACCINE IM ONE (00:36)
[2019-03-08] MEDS: NS 1,000 ML IV SCH ×3 (01:22→21:44)
--- NOTE | 2019-03-08 05:08 | HISTORY AND PHYSICAL ---
PRIMARY CARE PHYSICIAN: Dr. Neal. CHIEF COMPLAINT: Abdominal pain x3 days. HISTORY OF PRESENTING ILLNESS: A 61-year-old male with a history of diabetes mellitus type 2, hypertension, coronary artery disease, chronic pancreatitis, and COPD who had presented to the emergency department with 3 days history of worsening abdominal pain. Patient states the pain was mostly in his epigastric region, and he was nauseated. The patient was evaluated in the emergency department. He had imaging done which did show worsening pancreatic inflammation indicating pancreatitis. Due to his presenting symptoms, he will need admission for further management. At the time of my examination, patient denied any headache, fever, chills, chest pain, shortness of breath or hemoptysis, but complained of abdominal pain and not feeling well. PAST MEDICAL HISTORY: Include diabetes mellitus type 2, hypertension, coronary artery disease, gout, COPD, and chronic pancreatitis. PAST SURGICAL HISTORY: None. ALLERGIES: Ampicillin and naproxen. CURRENT MEDICATIONS: 1. Albuterol inhaler q.4 hours. 2. Norvasc 10 mg p.o. daily. 3. Aspirin 81 mg p.o. daily. 4. Atorvastatin 40 mg p.o. daily. 5. Clonidine Patch 1 q. 7 days. 6. Flexeril 10 mg p.o. b.i.d. 7. Diltiazem 120 mg p.o. b.i.d. 8. Lisinopril 40 mg p.o. b.i.d. 9. Insulin sliding scale. 10. Metoprolol 100 mg p.o. daily. SOCIAL HISTORY: A 40 pack year history of smoking. History of alcohol use usually on the weekends mostly beer. Denies any illicit drug use. FAMILY HISTORY: Positive for coronary disease in mother. REVIEW OF SYSTEMS: Fourteen point review of systems as listed in HPI. Other systems negative. PHYSICAL EXAMINATION: GENERAL: Cooperative friendly male. He is resting comfortably now. VITAL SIGNS: Temperature 98 degrees, pulse 95, respirations 17 and blood pressure 149/83. HEENT: Atraumatic, normocephalic. Extraocular movements intact. PERRLA. NECK: Supple. CHEST: Clear to auscultation. CARDIOVASCULAR: Regular rate and rhythm. ABDOMEN: Soft. Diffuse tenderness. EXTREMITIES: No edema. NEUROLOGIC: He is awake, alert, and oriented x3. : No bladder distention. SKIN: Warm. LABORATORIES AND STUDIES: WBCs 10.37, hemoglobin 13.5, hematocrit 41.8, and platelets 263,000. Sodium 136, potassium 4.0, chloride 98, CO2 25, BUN is 12, creatinine 0.9, and glucose 134. CT of the abdomen and pelvis shows worsening pancreatic inflammation indicating pancreatitis. ASSESSMENT: This is a 59-year-old male with a history of diabetes mellitus type 2, hypertension, coronary disease, and chronic pancreatitis who had presented to our emergency department with a 3 days history of worsening abdominal pain. He was evaluated in the emergency department. He had imaging done showing worsening pancreatic inflammation indicating pancreatitis. Subsequently, he will require admission for further management. 1. Acute on chronic pancreatitis. 2. Diabetes mellitus type 2. 3. Hypertension. 4. Chronic obstructive pulmonary disease. PLAN: 1. We will admit patient to medical floor with telemetry. 2. We will keep patient NPO. Continue supportive treatment with IV fluids, antiemetics, and pain control. 3. We will monitor blood glucose, and put patient on sliding scale insulin regimen. 4. We will monitor blood pressure. Resume antihypertensive agent. 5. Continue with DuoNeb's p.r.n. 6. Put patient on DVT prophylaxis with SCD's. 7. We will continue to follow and reassess. Make further recommendation based on the patient's clinical course. cc: MD Andi Birch Jr, MD
[2019-03-08] MEDS: HUMULIN R SUBQ SCH ×4 (06:35→21:46)
[2019-03-08 06:41] LABS: BASO# 0.03 X1000 (0.0-0.2); BASO% 0.4 % (0.0-0.8); EOS# 0.37 X1000 (0.0-0.7); EOS% 4.5 % (0.0-10.0); HEMATOCRIT 40.8 % (42.0-52.0); HEMOGLOBIN 13.1 g/dL (14.0-18.0); LYMPH# 3.03 X1000 (1.2-3.4); LYMPH% 36.9 % (20.5-51.1); MCH 23.6 PG (27-31); MCHC 32.1 g/dL (33-37); MCV 73.4 FL (81-99); MONO# 0.81 X1000 (0.11-0.59); MONO% 9.9 % (1.7-9.3); MPV 10.9 FL (7.4-10.4); NEUT# 3.97 X1000 (1.4-6.5); NEUT% 48.3 % (42.2-75.2); PLT 216 X1000 (130-400); RBC 5.56 XMIL (4.7-6.1); RDW 14.1 % (11.5-14.5); WBC 8.21 X1000 (4.8-10.8)
[2019-03-08 06:52] LABS: AGAP 8; BUN 10 mg/dL (8-22); CALCIUM 9.2 mg/dL (8.8-10.2); CHLORIDE 99 mmol/L (98-107); COSMO 267; CREATININE 0.8 mg/dL (0.7-1.2); ESTIMATED GFR > 60; GLUCOSE 121 mg/dL (70-104); POTASSIUM 3.7 mmol/L (3.5-5.1); SODIUM 133 mmol/L (136-145); TCO2 26 mmol/L (25-35)
[2019-03-08] MEDS: NORVASC PO SCH (08:47)
[2019-03-08] MEDS: ASPIRIN PO SCH (08:47)
[2019-03-08] MEDS: TOPROL XL PO SCH (08:47)
[2019-03-08] MEDS: CARDIZEM CD PO SCH ×2 (08:47→21:44)
[2019-03-08] MEDS: MONOPRIL PO SCH ×2 (08:47→21:44)
[2019-03-08] MEDS: LIPITOR PO SCH (08:47)
--- NOTE | 2019-03-08 09:27 | PROGRESS NOTE ---
DATE: 03/08/2019 SUBJECTIVE: The patient says he is still hurting in his abdomen. It has been going on for at least a couple of days off and on. He actually had a cystoscopy with Dr. Escalante yesterday, and he does have some pyuria which may be from the procedure. He also had blood. We do have a culture pending and have not started him on antibiotics yet. He has had pancreatitis on 2 other occasions starting about 2 or 3 years ago and was treated at another institute. He has had some elevated liver function tests, but this has been chronic and have not been able to get a complete workup for this due to the fact that he has coronary artery disease and had to be sent from this hospital to [facility] for procedures. He also has diabetes, and he has gallstones. OBJECTIVE: Vital signs: Blood pressure is 151/87, respirations 11, pulse 67, temperature 98.3 degrees Fahrenheit. HEENT: Normocephalic and atraumatic. PERRL. Nares clear. Lungs: Clear to auscultation and percussion without rhonchi, rales or wheezes. Heart: Regular rate and rhythm without murmurs, gallops or friction rubs. Abdomen: Tender in the right upper quadrant and epigastric areas consistent with his pancreatitis and perhaps gallstones. Neurologic: Intact grossly. DIAGNOSTIC DATA: White count is 8210, yesterday was 10,370, hemoglobin 13.1. Amylase and lipase were normal yesterday. AST was 36, ALT was 51. Blood sugars were adequate. Electrolytes normal. CT scan did show inflammation around the pancreas consistent with pancreatitis and gallstones. Urine shows too numerous to count WBCs and too numerous to count RBCs with 2+ bacteria. He has no symptoms with the urinary tract infection. We are awaiting cultures. If that comes back positive, we will treat with antibiotics. ASSESSMENT: 1. Abdominal pain with pancreatitis and gallstones. 2. Diabetes mellitus. 3. Pyuria. 4. Hematuria. 5. Adult onset diabetes mellitus. 6. History of alcohol abuse, now off alcohol for over a month. PLAN: We will consult GI and consult Surgery. We will get a HIDA scan. cc: Andi Neal Jr, MD
--- NOTE | 2019-03-08 15:05 | CONSULTATION ---
DATE OF CONSULTATION: 03/08/2019 REASON FOR CONSULTATION: Chronic pancreatitis CHIEF COMPLAINT: Abdominal pain, right upper quadrant, in the epigastric area,radiating towards the back, nausea, and noticed blood in the urine. HISTORY OF PRESENT ILLNESS: He has pancreatitis, nausea, abdominal pain in right upper quadrant at the epigastric area radiating to the back. The patient is a chronic alcoholic and a smoker. He stated that "his abdominal pain is an onging problem." Pain scale is 7 out of 10. PAST MEDICAL HISTORY: Diabetes, asthma, hypertension, chronic pancreatitis, gallstones, alcoholism, tobacco abuse SURGERY: Right wrist surgery. ALLERGIES: No known drug allergies. MEDICATIONS: His home medications are Flexeril, albuterol, amlodipine, fluticasone, metoprolol, clonidine patch, insulin novolog, doxycycline, atorvastatin, insulin glargine, fosinopril, and aspirin. FAMILY HISTORY: His dad had heart problems. Mom had cancer of the stomach. Sister has heart murmur and brother has sleep apnea. SOCIAL HISTORY: He is a smoker. He smokes 1 pack of cigarettes per week and drinks a case of beer during the weekends. He is and living with his girlfriend. He has 2 boys who stay with their mother and works for [employer]. REVIEW OF SYSTEMS: Constitutional: weight loss HEENT: Denies any eyes, ears, neck, or throat problems. Lungs: Denies SOB or wheezing Cardiovascular: Denies any chest pain, shortness of breath. GI: Pancreatitis, gallstones, abdominal pain. Extremities: Denies any numbness, tingling, or burning sensation. Neurologic: Denies any headache, dizziness,vertigo, or seizures. PHYSICAL EXAMINATION: Vital Signs: Temperature is 98.1 degrees, pulse is 64, respirations are 16, blood pressure is 145/74, and oxygen saturation is 98% on room air. GEN: awake, alert, NAD HEENT: Pale conjunctivae. No icterus. PERRL. Lungs: Clear to auscultation in anterior and posterior bermudez.. No abnormal breath sounds heard. Cardiovascular: Regular rate and rhythm. No rubs, murmurs, or gallops heard. Abdomen: Hard, distended. Voluntary guarding. Diffuse TTP. No rebound tenderness. Active bowel sounds heard in all four quadrants. Extremities: No cyanosis, no clubbing or edema noted. Neurologic: AO x 3, Nonfocal. Cranial nerves II to XII grossly intact. LABS: WBCs 8.2, RBCs 5.56, hemoglobin is 13.1, hematocrit is 40.8, platelet count is 216,000. Chemistry: Sodium is 133, potassium is 3.7, chloride is 99, carbon dioxide is 26, anion gap is 8, BUN is 10, creatinine is 0.8, glucose is 129, calcium is 9.2. AST is 36, ALT is 51, alkaline phosphatase is 192, amylase is 72, lipase is 32. Urinalysis shows trace of protein, trace of glucose, trace of blood, large amount of leukocytes. IMAGING: CT of the abdomen without contrast showed worsening of pancreatic inflammation, indicating pancreatitis; gallstones in the gallbladder without cholecystitis. no CBD dilation ASSESSMENT: - Acute on chronic pancreatitis - Alcoholism - Tobacco abuse - Hematuria - Gallstones PLAN: The plan is to advance the patient's diet from NPO to clear liquids and then advance as tolerated to a low fat diet. We will continue the IV fluids, normal saline at 100 ml/hr, antiemetics for nausea. The patient was advised on the importance of smoking cessation and risks of smoking explained to the patient. Educated patient to lose weight and follow a healthy diet, a low fat diet, and risk of being obese has been explained to the patient. We have asked the patient to follow up at the clinic after he is discharged from the hospital. We will continue the plan of care per primary care team. This plan was discussed with Dr. Pereira and the patient, patient verbalizes understanding of the plan of care. Thank you for the consult. Please call us for any further questions or concerns. Please forward this note to Dr. Pereira Dictated by MALINA Gan for Bo Pereira MD cc: Adni Neal Jr, MD I have seen and examined the patient. I have reviewed the labs, imaging, and other documentation. I discussed the case with Nyla Schwarz INSTRUMENT TECHNOLOGIST and agree with the findings and plan as documented. In brief, Mr. Luis Pringle is a 59 year old man with HTN, asthma, alcoholism, and tobacco abuse who presents with several days of diffuse abdominal pain found to have acute on chronic pancreatitis. He continues to smoke and drink despite known history of chronic pancreatitis. His exam shows TTP throughout with voluntary guarding. He does have gallstones on imaging, but no CBD dilation and his elevate abnormal LFTs is likely from alcoholism, not cholestatic. Recommend continued IVFs, clear liquid diet, analgesics and antiemetics prn. I do not think his symptoms are secondary to gallstone pancreatitis. However, I would consider elective cholecystectomy as outpatient given chronic pancreatitis. Thank you for this consult. Will follow with you. Please call with questions. CHAVO
--- NOTE | 2019-03-08 19:14 | GENERAL SURGERY CONSULTATION ---
DATE: 03/08/2019 HISTORY OF PRESENT ILLNESS: Mr. Pringle is a 61-year-old male who was admitted with abdominal pain. He says this is his third bout of pancreatitis, and it is usually secondary to drinking alcohol. He does admit to drinking beer recently. His other medical problems include hypertension, coronary artery disease, COPD, gout and the recurrent chronic pancreatitis. Denies any surgery. MEDICATIONS: Include Albuterol, Norvasc, aspirin, atorvastatin, clonidine, Flexeril, diltiazem, lisinopril, insulin siding scale and metoprolol. ALLERGIES: Ampicillin and naproxen. SOCIAL HISTORY: He is down to a pack a day he says in smoking. He does admit to drinking beer. Denies any illicit drug use. FAMILY HISTORY: Pertinent for coronary artery disease. REVIEW OF SYSTEMS: Negative in the 10 subsystems except as noted in the history of Present Illness. PHYSICAL EXAMINATION: Vital signs: Afebrile, heart rate 64, respiratory rate 16, blood pressure 145/74. Neck: No cervical adenopathy. No thyroid masses. Lungs: Clear. Heart: Regular rate and rhythm. Abdomen: Soft. He is mildly tender in the epigastrium. He has no peripheral edema. Endocrine: Negative. Integumentary: Negative. Neurologic: He is awake, alert and oriented. No neurologic deficits. ASSESSMENT: Chronic recurrent pancreatitis. This is probably related to alcohol intake. I doubt it is related to his gallstones, but we will follow along. cc: MD Andi Wells Jr, MD
[2019-03-09] MEDS: HUMULIN R SUBQ SCH ×4 (06:37→21:50)
[2019-03-09 06:51] LABS: BASO# 0.03 X1000 (0.0-0.2); BASO% 0.4 % (0.0-0.8); EOS# 0.53 X1000 (0.0-0.7); EOS% 7.3 % (0.0-10.0); HEMATOCRIT 41.8 % (42.0-52.0); HEMOGLOBIN 13.6 g/dL (14.0-18.0); IMM GRAN# 0.02 X1000 (0.0-0.04); IMM GRAN% 0.3 % (0.0-0.5); LYMPH# 2.83 X1000 (1.2-3.4); LYMPH% 38.9 % (20.5-51.1); MCH 23.8 PG (27-31); MCHC 32.5 g/dL (33-37); MCV 73.2 FL (81-99); MONO# 0.64 X1000 (0.11-0.59); MONO% 8.8 % (1.7-9.3); MPV 10.9 FL (7.4-10.4); NEUT# 3.22 X1000 (1.4-6.5); NEUT% 44.3 % (42.2-75.2); PLT 258 X1000 (130-400); RBC 5.71 XMIL (4.7-6.1); WBC 7.27 X1000 (4.8-10.8)
[2019-03-09 07:37] LABS: AGAP 11; BUN 8 mg/dL (8-22); CALCIUM 8.9 mg/dL (8.8-10.2); CHLORIDE 100 mmol/L (98-107); COSMO 282; CREATININE 0.7 mg/dL (0.7-1.2); ESTIMATED GFR > 60; GLUCOSE 242 mg/dL (70-104); POTASSIUM 4.1 mmol/L (3.5-5.1); SODIUM 138 mmol/L (136-145); TCO2 27 mmol/L (25-35)
[2019-03-09] MEDS: LIPITOR PO SCH (08:56)
[2019-03-09] MEDS: TOPROL XL PO SCH (08:56)
[2019-03-09] MEDS: ASPIRIN PO SCH (08:56)
[2019-03-09] MEDS: NORVASC PO SCH (08:56)
[2019-03-09] MEDS: CARDIZEM CD PO SCH ×2 (08:57→21:50)
[2019-03-09] MEDS: MONOPRIL PO SCH ×2 (08:57→21:49)
--- NOTE | 2019-03-09 09:28 | PROGRESS NOTE ---
DATE: 03/09/2029 SUBJECTIVE: The patient still has abdominal pain. He says it is about a 6 or 7 on a scale of 10, but much better than it was yesterday. I have had surgery and Gastroenterology look at him. He does have gallstones. He has what they are considering chronic pancreatitis probably from his drinking. I have encouraged him to stop all drinking completely. He still smokes and has coronary artery disease. I have encouraged him to stop smoking. He says he has cut back. OBJECTIVE: Vital Signs: Blood pressure 166/80, respirations 18, pulse 59, and temperature 98.2 degrees Fahrenheit. HEENT: Normocephalic. EOMs intact. PERRLA. Throat clear. Lungs: Clear to auscultation and percussion without rhonchi, rales, or wheezes. Heart: Regular rate and rhythm without murmurs, gallops, or friction rubs. Abdomen: Soft, with tenderness in the epigastric region and a little bit in the right upper quadrant. It is interesting that amylase and lipase have been normal. Neurological: Intact grossly. ASSESSMENT: 1. Chronic pancreatitis with abdominal pain. 2. Gallstones which may be incidental to the current illness. PLAN: The patient is going to eat some today. We will see how his pain is doing through the day, and into tomorrow. If he can tolerate food and his pain gets better, we might consider discharge at that time. It depends on how much pain he is having. cc: Andi Neal Jr, MD
--- NOTE | 2019-03-09 11:32 | PROGRESS NOTE ---
DATE: 03/09/2019 SUBJECTIVE: Mr. Pringle is a 59-year-old male lying in bed complaining of abdominal pain, but said that it was much better. He has been eating well and denies any nausea, vomiting, but complained of not having a bowel movement today. He has chronic pancreatitis, is a chronic alcoholic as well as a smoker. OBJECTIVE: Vital Signs: Temperature 98.2 degrees, pulse is 59, respirations are 18, blood pressure is 166/80, oxygen saturation is 100% on room air. General: AO x 3, in no acute distress. HEENT: Pale conjunctivae. No icterus. PERRL. Neck: Supple. Lungs: Clear to auscultation in the anterior and posterior bermudez. No abnormal breath sounds heard. Heart: Regular rate and rhythm without murmurs, gallops, or frictions heard on auscultation. Abdomen: Distended, voluntary guarding. No rebound tenderness. Active bowel sounds heard in all 4 quadrants, and abdominal pain in the epigastric area. Extremities: No cyanosis, clubbing, or edema noted. Neurologic: Alert, oriented x3. LABS: WBC was 7.27, RBC is 5.71, hemoglobin is 13.6, hematocrit is 41.8, platelet count is 258. Sodium is 138, potassium is 4.1, chloride is 100, carbon dioxide is 27, anion gap is 11. BUN is 8, creatinine 0.7. Urinalysis from 03/07 shows that he has got trace of protein, trace of glucose and moderate blood, large amounts of leukocytes. Urine WBCs in urine and feces. X-RAYS: Abdominal CT that was taken on 03/07 shows worsening pancreatic inflammation indicating pancreatitis. Small gallstones in the gallbladder, stable from prior. ASSESSMENT AND PLAN: 1. Chronic pancreatitis with abdominal pain. 2. Gallstones. 3. Obesity. 4. Smoker. 5. Alcoholic. PLAN: The patient is tolerating his diet well and is wanting to eat more. He is still complaining of his abdominal pain. We have encouraged him on smoking cessation and also about his alcohol intake, and discussed the risk associated with it. From the Gastroenterology standpoint, he can be discharged. We have asked him to come for a follow-up as an outpatient at our clinic once he is discharged from the hospital in 4 to 6 weeks. This plan was discussed with Dr. Pereira and the patient. Patient acknowledges understanding of the plan of care. Please call us with further questions or concerns. Dictated by MALINA Gan for Bo Pereira MD cc: Andi Neal Jr, MD I have seen and examined the patient. I have reviewed the labs, imaging, and other documentation. I discussed the case with Nyla Schwarz COMPOSITION WORKER and agree with the findings and plan as documented. Mr. Luis Pringle is a 59 year old man who presents with acute on chronic pancreatitis in the setting of alcohol and tobacco abuse. He is tolerating diet and he is ambulatory. No BM. Recommend miralax for constipation. Patient should follow-up with GI upon discharged. CORINAD
[2019-03-10] MEDS: HUMULIN R SUBQ SCH (06:24)
[2019-03-10 07:19] LABS: BASO# 0.03 X1000 (0.0-0.2); BASO% 0.4 % (0.0-0.8); EOS# 0.55 X1000 (0.0-0.7); EOS% 6.8 % (0.0-10.0); HEMATOCRIT 39.9 % (42.0-52.0); IMM GRAN# 0.02 X1000 (0.0-0.04); IMM GRAN% 0.2 % (0.0-0.5); LYMPH# 2.96 X1000 (1.2-3.4); LYMPH% 36.5 % (20.5-51.1); MCH 23.6 PG (27-31); MCHC 32.6 g/dL (33-37); MCV 72.4 FL (81-99); MONO# 0.64 X1000 (0.11-0.59); MONO% 7.9 % (1.7-9.3); NEUT# 3.92 X1000 (1.4-6.5); NEUT% 48.2 % (42.2-75.2); PLT 248 X1000 (130-400); RBC 5.51 XMIL (4.7-6.1); RDW 13.7 % (11.5-14.5); WBC 8.12 X1000 (4.8-10.8)
[2019-03-10 07:37] LABS: AGAP 11; BUN 12 mg/dL (8-22); CHLORIDE 101 mmol/L (98-107); COSMO 280; CREATININE 0.9 mg/dL (0.7-1.2); ESTIMATED GFR > 60; GLUCOSE 275 mg/dL (70-104); POTASSIUM 3.9 mmol/L (3.5-5.1); SODIUM 135 mmol/L (136-145); TCO2 23 mmol/L (25-35)
[2019-03-10 07:56] VITALS: BP 152/82
[2019-03-10] MEDS: CARDIZEM CD PO SCH (08:46)
[2019-03-10] MEDS: NORVASC PO SCH (08:46)
[2019-03-10] MEDS: TOPROL XL PO SCH (08:46)
[2019-03-10] MEDS: LIPITOR PO SCH (08:46)
[2019-03-10] MEDS: MONOPRIL PO SCH (08:46)
[2019-03-10] MEDS: ASPIRIN PO SCH (08:47)
[2019-03-10] MEDS ORDERED: MIRALAX PO SCH (09:15)
--- NOTE | 2019-03-10 10:12 | PROGRESS NOTE ---
DATE: 03/10/2019 SUBJECTIVE: Mr. Pringle is a 59-year-old male, sitting in his bed. Denied any nausea, vomiting, or diarrhea, still has abdominal pain. He denied having any bowel movements today. OBJECTIVE: Vital Signs: Temperature is 97.6 degrees, pulse rate is 58, respirations are 16, blood pressure 152/82, oxygen is 96% on room air. Weight is 220 pounds. BMI is 30.8 kg/m2. General: Alert and oriented x3. No acute distress. HEENT: Pale conjunctivae. Icteric sclerae. PERRL. Neck: Supple. Lungs: Clear to auscultation in anterior and posterior bermudez. No abnormal breath sounds heard. Heart: Regular rate and rhythm. No murmurs, gallops, or rubs heard on auscultation. Abdomen: Soft, distended, pain in the epigastric area, active bowel sounds heard in all 4 quadrants.Extremities: No cyanosis, clubbing, or edema noted, 2+ pulses present bilaterally. Neurological: Alert, oriented x3. LABORATORY DATA: WBC 8.12, RBCs 5.51, hemoglobin 13.0, hematocrit 39.9, platelet count is 248,000. Chemistry: Sodium 135, potassium 2.9, chloride is 101, Carbon dioxide is 23, anion gap is 11, BUN 12, creatinine 0.9. Urine on 03/07/2019 showed trace of protein, trace of leukocytes and RBCs. IMAGING: CT of the abdomen showed worsening pancreatitis, inflammation indicating pancreatitis. Small gallstones in the gallbladder are stable from the prior. ASSESSMENT AND PLAN: Chronic pancreatitis with abdominal pain Gallstones Obesity Smoker Alcoholic. PLAN: He is tolerating his diet well. He still has abdominal pain. Continue GI prophylaxis. We have encouraged him on smoking cessation and to stop drinking alcohol, discussed the risk associated with this. Patient is going to be discharge today. We have asked the patient to follow up at our clinic as an outpatient after he gets discharged in 4 to 6 weeks. This plan has been discussed with Dr. Crump and the patient. Patient acknowledges understanding of the plan of care. Please call us with any further questions or concerns. Dictated by MALINA Gan for Bo Pereira MD cc: MD CHAVO Cavanaugh Jr
--- NOTE | 2019-03-10 14:30 | DISCHARGE SUMMARY ---
ADMISSION DATE: 03/07/2019 DISCHARGE DATE: 03/10/2019 FINAL DIAGNOSES: 1. Acute on chronic pancreatitis. 2. Alcoholism. 3. Coronary artery disease. 4. Diabetes mellitus. 5. Hypertension. 6. Hyperlipidemia. 7. COPD. 8. Gallstones. CONSULTATION: With Dr. Pereira, gastroenterology, and also Dr. Gustavo Raymundo, surgery. PRESENT ILLNESS: Patient is a 59-year-old male with abdominal pain. Has had a history of pancreatitis, continues to drink at times. Have encouraged him to stop all alcohol and all tobacco. He has coronary artery disease. Initial enzymes were negative but CT scan of the abdomen did show inflammation consistent with pancreatitis. The patient initially had abdominal pain in the epigastric and right upper quadrant areas. His CT scan did showed gallstones. Because of this, I did consult surgery as well as Gastroenterology who felt that this time that he probably did not have gallstone pancreatitis but it was related to his alcohol ingestion. The patient was given pain medications. Finally, he was given food and has tolerated that. His pain is much better today with very little tenderness on palpation at this time. PHYSICAL EXAMINATION: Vital Signs: Show blood pressure 152/82, respirations 16, pulse 58, temperature 97.6 degrees Fahrenheit. HEENT: Normocephalic. EOMs intact. PERRLA. Throat clear. Lungs: Clear to auscultation and percussion without rhonchi, rales, or wheezes. Heart: Regular rate and rhythm without murmurs, gallops, friction rubs. Abdomen: Soft with very mild epigastric tenderness and this is much improved. Neurological: Cranial nerves 2-12 intact grossly. Sensory and motor intact. LABORATORY DATA: Stable with a white count of 8120, hemoglobin 13.0. The patient did have elevated liver enzymes in the hospital but he had those before he came in the hospital. He had also had pyuria but had a procedure by Urology just a day or so before he came in the hospital. His culture was negative. He has no symptoms of urinary tract infection. PLAN: I will plan to see him back in a week. We will schedule him an appointment with both Dr. Pereira and Dr. Raymundo after he leaves the hospital. He will be on his home medications plus I will give him 20 of the [place] 10, half to a whole every 6 hours p.r.n. pain. He may take MiraLAX for any constipation. cc: Andi Neal Jr, MD
== END 2019-03-10 10:24 | disposition home or self-care (01) | DRG 440 ==
LOC: ED 14:02 → SUATTDRO 23:28 → 4N 23:28
PROVIDERS: ADMIT Emergency Medicine; ATTEND Emergency Medicine

== ENCOUNTER 2019-03-27 17:32 | Inpatient (IN) ==
[2019-03-27] MEDS ORDERED: DILAUDID IV ONE (18:13)
[2019-03-27] MEDS ORDERED: ZOFRAN IV ONE (18:13)
[2019-03-27] MEDS ORDERED: NS 1,000 ML IV ONE (18:13)
[2019-03-27 18:27] LABS: URINE SOURCE CLEAN CATCH
[2019-03-27 18:30] LABS: BILIRUBIN URINE NEGATIVE (NEGATIVE); BLOOD URINE TRACE (NEGATIVE); COLOR YELLOW; GLUCOSE URINE >1000 mg/dL (NEGATIVE); KETONE URINE NEGATIVE (NEGATIVE); LEUKOCYTES URINE LARGE (NEGATIVE); NITRITE URINE NEGATIVE (NEGATIVE); PROTEIN URINE 100 mg/dL (NEGATIVE); SP GRAVITY URINE 1.026; TURBIDITY URINE CLEAR (CLEAR); UROBILINOGEN URINE NORMAL (NORMAL)
[2019-03-27 18:32] LABS: UR EPITHELIAL CELLS <10 /HPF (<10); URINE BACTERIA NEGATIVE /HPF; URINE RBC <10 /HPF (<10); URINE WBC TNTC /HPF (<10)
[2019-03-27 19:18] LABS: BASO# 0.02 X1000 (0.0-0.2); BASO% 0.2 % (0.0-0.8); EOS# 0.32 X1000 (0.0-0.7); EOS% 3.5 % (0.0-10.0); HEMATOCRIT 41.5 % (42.0-52.0); HEMOGLOBIN 13.3 g/dL (14.0-18.0); IMM GRAN# 0.02 X1000 (0.0-0.04); IMM GRAN% 0.2 % (0.0-0.5); LYMPH# 2.62 X1000 (1.2-3.4); MCH 23.4 PG (27-31); MCV 72.9 FL (81-99); MONO# 0.65 X1000 (0.11-0.59); MONO% 7.2 % (1.7-9.3); MPV 11.3 FL (7.4-10.4); NEUT# 5.41 X1000 (1.4-6.5); NEUT% 59.9 % (42.2-75.2); PLT 211 X1000 (130-400); RBC 5.69 XMIL (4.7-6.1); RDW 13.9 % (11.5-14.5); WBC 9.04 X1000 (4.8-10.8)
[2019-03-27 19:34] LABS: EOS 5 % (1-10); LYMPHS 23 % (21-51); MONO 10 % (1-9); SEGS 62 % (42-75)
[2019-03-27 19:50] LABS: AGAP 11; ALB/GLOB RATIO 0.8; ALBUMIN 3.4 g/dL (3.5-5.0); ALKALINE PHOSPHATASE 178 U/L (32-122); AMYLASE 118 U/L (20-200); BUN 13 mg/dL (8-22); CALCIUM 8.1 mg/dL (8.8-10.2); CHLORIDE 94 mmol/L (98-107); COSMO 281; ESTIMATED GFR > 60; GLUCOSE 491 mg/dL (70-104); GOT 59 U/L (10-34); GPT 56 U/L (10-44); LIPASE 118 U/L (13-60); MAGNESIUM 1.9 mg/dL (1.5-2.7); POTASSIUM 4.6 mmol/L (3.5-5.1); SODIUM 129 mmol/L (136-145); TCO2 24 mmol/L (25-35); TOTAL BILIRUBIN 0.35 mg/dL (0.20-1.00); TOTAL PROTEIN 7.5 g/dL (6.3-8.3)
--- NOTE | 2019-03-27 22:11 | HISTORY AND PHYSICAL ---
PRIMARY CARE PHYSICIAN: Dr. Neal. CHIEF COMPLAINT: Abdominal pain. HISTORY OF PRESENTING ILLNESS: A 59-year-old male with a history of diabetes mellitus type 2, hypertension, coronary artery disease, chronic pancreatitis, who presented to emergency department with complaint of right upper quadrant abdominal pain. States it has been going on for several days and it seems to be worsening. He was admitted previously several weeks ago with similar symptoms. At that time, had a CT done which did show cholelithiasis and pancreatitis. Due to his presenting symptoms, it was thought that he would need admission for further management. At the time of my examination, patient denied any headache, fever, chills, chest pain, shortness of breath or any weight changes but complained of abdominal pain. PAST MEDICAL HISTORY: Include diabetes mellitus type 2, hypertension, coronary disease, chronic pancreatitis. PAST SURGICAL HISTORY: None. ALLERGIES: Ampicillin, naproxen. CURRENT MEDICATIONS: Albuterol inhaler q.4 hours, Norvasc 10 mg p.o. daily, aspirin 81 mg p.o. daily, atorvastatin 40 mg p.o. daily, clonidine patch 1 transdermal q.7 hours, Flexeril 10 mg p.o. b.i.d., diltiazem 120 mg p.o. b.i.d., fosinopril 40 mg p.o. b.i.d., [place] 10/325 one p.o. q.6 hours, NovoLog FlexPen as directed, Lantus SoloSTAR 30 units subcu b.i.d., metoprolol 100 mg p.o. daily, Effient 10 mg p.o. daily. SOCIAL HISTORY: A 40 pack history of smoking, history of alcohol use regularly. Denies any illicit drug use. FAMILY HISTORY: Positive coronary disease mother. REVIEW OF SYSTEMS: Fourteen point review of systems is as in HPI. Other systems negative. PHYSICAL EXAMINATION: GENERAL: Cooperative, friendly male. He is resting comfortably now. VITAL SIGNS: Temperature 97.4 degrees, pulse 85, respirations 16, blood pressure 195/78. HEENT: Atraumatic, normocephalic. Extraocular movements intact. PERRLA. NECK: No masses. CHEST: Clear to auscultation. CARDIOVASCULAR: Regular rate and rhythm. ABDOMEN: Soft, right upper quadrant tenderness. EXTREMITIES: No edema. NEUROLOGIC: Awake, alert, oriented x3. : No bladder distention. SKIN: Warm. LABORATORIES AND STUDIES: WBC 9.04, hemoglobin 13.3, hematocrit 41.5, platelets 211,000. Sodium 129, potassium 4.6, chloride 94, CO2 24, BUN is 13, creatinine is 1.0, glucose 491, AST 59, ALT 56, alkaline phosphatase 178. ASSESSMENT: A 59-year-old male with a history of diabetes mellitus type 2, hypertension, coronary disease, chronic pancreatitis who presented to emergency department with complaint of abdominal pain for several days states mostly in the right upper quadrant. He was evaluated in the emergency department and due to his presenting symptoms, he will need admission for further management. 1. Acute on chronic pancreatitis. 2. Symptomatic cholelithiasis. 3. Diabetes mellitus type 2 with hyperglycemia. 4. Hypertension. 5. Chronic obstructive pulmonary disease. PLAN: 1. We will admit patient to medical floor with telemetry. 2. Continue supportive treatment with IV fluids, antiemetics, pain control. 3. We will check abdominal ultrasound. 4. We will monitor blood glucose and put patient on sliding scale insulin regimen. 5. Monitor blood pressure. Resume antihypertensive agent. 6. We will continue with DuoNeb. 7. We will continue to follow, reassess, make further recommendation based on patient's clinical course. cc: Bijan Schwartz MD
[2019-03-27] MEDS ORDERED: DUONEB (A & A) INH PRN (22:37)
[2019-03-27] MEDS: NS 1,000 ML IV SCH (23:22)
[2019-03-28 07:40] LABS: BASO# 0.04 X1000 (0.0-0.2); BASO% 0.5 % (0.0-0.8); EOS# 0.49 X1000 (0.0-0.7); EOS% 6.4 % (0.0-10.0); LYMPH# 3.03 X1000 (1.2-3.4); LYMPH% 39.7 % (20.5-51.1); MCH 23.2 PG (27-31); MCHC 31.6 g/dL (33-37); MCV 73.5 FL (81-99); MONO# 0.68 X1000 (0.11-0.59); MONO% 8.9 % (1.7-9.3); MPV 10.9 FL (7.4-10.4); NEUT# 3.39 X1000 (1.4-6.5); NEUT% 44.5 % (42.2-75.2); PLT 205 X1000 (130-400); RBC 5.17 XMIL (4.7-6.1); RDW 13.7 % (11.5-14.5); WBC 7.63 X1000 (4.8-10.8)
[2019-03-28 08:12] LABS: AGAP 8; BUN 7 mg/dL (8-22); CHLORIDE 105 mmol/L (98-107); COSMO 278; CREATININE 0.7 mg/dL (0.7-1.2); ESTIMATED GFR > 60; GLUCOSE 212 mg/dL (70-104); POTASSIUM 3.7 mmol/L (3.5-5.1); SODIUM 137 mmol/L (136-145); TCO2 24 mmol/L (25-35)
[2019-03-28] MEDS: LOPRESSOR PO SCH (09:01)
[2019-03-28] MEDS: CARDIZEM CD PO SCH ×2 (09:01→23:12)
[2019-03-28] MEDS: ASPIRIN PO SCH (09:01)
[2019-03-28] MEDS: EFFIENT PO SCH (09:01)
[2019-03-28] MEDS: LIPITOR PO SCH (09:01)
[2019-03-28] MEDS: MONOPRIL PO SCH ×2 (09:01→23:11)
[2019-03-28] MEDS: NORVASC PO SCH (09:01)
--- NOTE | 2019-03-28 09:05 | PROGRESS NOTE ---
DATE: 03/28/2019 SUBJECTIVE: The patient is still having some abdominal pain and was placed in the hospital for acute on chronic pancreatitis. His pain started several days ago. He has been admitted for this in the past. Came in with an elevated lipase, but his amylase is normal. OBJECTIVE: Vital signs: Blood pressure is 156/71, respirations 15, pulse 57, temp 97.8 degrees Fahrenheit. HEENT: He is normocephalic. EOMS intact. PERRLA. Throat clear. Lungs: Clear to auscultation and percussion without rhonchi, rales, or wheezes. Heart: Regular rate and rhythm without murmurs, gallops, friction rubs. Abdomen: Soft, without organomegaly but does have tenderness over the pancreatic area a little bit over the right upper quadrant. We noted that he has gallstones. He has had chronically elevated liver function tests from alcoholism. He says he has not been drinking recently. Neurologic: Exam intact grossly. LABORATORY: Sodium was 129, is up to 137 today. Glucose was 491 when he came in, is 212 this morning. May have a urinary tract infection. White blood cells are too numerous to count in the urine. Total white count 7630, hemoglobin 12.0. ASSESSMENT: 1. Acute on chronic pancreatitis. 2. Alcoholism. 3. Gallstones. 4. Possible urinary tract infection. PLAN: We will get GI to see him. We will control pain. We will get a urine culture and will start on antibiotics. cc: Andi Neal Jr, MD
[2019-03-28] MEDS: ROCEPHIN 1 GM in NS 50 ML IV SCH ×2 (09:09→23:09)
[2019-03-28] MEDS: NS 1,000 ML IV SCH ×2 (09:09→17:56)
[2019-03-28] MEDS ORDERED: SODIUM CHLORIDE 0.9% INJ SCH (09:45)
[2019-03-28] MEDS: PROTONIX IV SCH ×2 (11:23→23:11)
--- NOTE | 2019-03-28 11:31 | Diag Imaging Result Doc PS360 ---
EXAM: US ABDOMEN-COMPLETE HISTORY: abdominal pain TECHNIQUE: Abdominal ultrasound COMPARISON: None. FINDINGS: Normal inferior vena cava. No abdominal aortic aneurysm. There are several small stones within the gallbladder. The wall is not thickened.. No focal hepatic abnormality. Normal right kidney. No hydronephrosis. Normal pancreatic head and body. The tail is obscured. The common bile duct measures 5 mm. Normal spleen. No ascites. Normal left kidney. No hydronephrosis. IMPRESSION: Cholelithiasis Electronically signed by Jacob Minaya 03/28/2019 11:29 AM
--- NOTE | 2019-03-28 14:55 | GASTROENTEROLOGY CONSULTATION ---
DATE: 03/28/2019 REASON FOR CONSULT: Abdominal pain/pancreatitis. HISTORY OF PRESENT ILLNESS: Mr. Pringle is a 59-year-old male who has a history of diabetes type 2, hypertension, coronary artery disease, chronic pancreatitis. He came to the ER with complaints of right upper quadrant abdominal pain and stated that it has been going on for a few days onwards. He was recently admitted with similar problems, his CT had shown he had cholelithiasis and pancreatitis. The patient is currently denying any nausea, vomiting, headache, fever, chills, chest pain, or shortness of breath but has abdominal pain on the right upper quadrant. He denied having any bowel movement today or yesterday. PAST MEDICAL HISTORY: Diabetes, hypertension, coronary artery disease, chronic pancreatitis, COPD, and gout. Alcoholism quit few weeks ago. PAST SURGICAL HISTORY: Heart catheterization ALLERGIES: Ampicillin and Naproxen. SOCIAL HISTORY: He lives with his girlfriend. He has 2 boys. He works at [employer]. He is a current smoker. He drinks alcohol on a regular basis- last drink was couple of weeks ago. but has denied any illicit drug use. FAMILY HISTORY: His sister had a heart murmur. Dad had heart disease and pacemaker. Mom had cancer but does not know which type of cancer. HOME MEDICATIONS: Flexeril 10 mg 3 times a day, albuterol 8.5 g inhalation q.2- 4 hours p.r.n., amlodipine 10 mg daily, fluticasone, metoprolol 50 mg two tablets daily, Klonopin patch one q.7 days, NovoLog insulin, doxycycline hyclate 100 mg twice a day, atorvastatin 40 mg daily, Lantus SoloStar 30 units twice a day, diltiazem HCL 120 mg one capsule twice a day, fosinopril sodium 40 mg one tablet twice a day, aspirin 81 mg chewable one tablet daily, hydrocodone/acetaminophen 10/325 one tablet q.6 hours, and Effient 10 mg tablet one tablet daily. REVIEW OF SYSTEMS: As per HPI. Otherwise, 12-point review of systems is negative. PHYSICAL EXAMINATION: Vital Signs: Temperature 97.8 degrees, pulse is 57, respirations 15, blood pressure is 156/71, oxygen saturation is 96% on room air. His weight is 223 pounds and his BMI is 31.2 kg/m2. General: He is alert, oriented x3, and in no acute distress. HEENT: Pale conjunctivae. No icterus. PERRLA. Neck: Supple. Chest: Lungs clear to auscultation. Cardiovascular: Regular rate and rhythm. No murmurs, rubs, or gallops heard on auscultation. Abdomen: Soft. Tender in the right upper quadrant. Involuntary guarding. No rebound tenderness noted. Active bowel sounds heard in all 4 quadrants. Extremities: No clubbing, no cyanosis, no edema noted. 2+ pedal pulses present bilaterally. Neurological: Alert, oriented x3. Nonfocal. Cranial nerves 2-12 grossly intact. LABORATORY DATA: WBCs 7.60, RBCs 5.17, hemoglobin is 12, hematocrit is 38.0, platelet count is 205,000. Sodium is 137, potassium 3.7, chloride is 105, carbon dioxide is 24, anion gap is 8, BUN is 7, creatinine is 0.7, glucose is 212, calcium is 8.0. Total bilirubin is 0.35, AST is 59, ALT is 56, alkaline phosphatase is 178, amylase 118, lipase is 118. Urine showed protein, glucose, trace of blood, large amount of leukocytes. Abdomen U/s showed Cholelithiasis. ASSESSMENT: 1. Chronic pancreatitis. Mildly elevated Lipase. 2. Cholelithiasis. 3. Type 2 diabetes. 4. Hypertension. 5. Chronic obstructive pulmonary disease. 6. Gout. 7. UTI 8. Mild anemia 9. Constipation 10. Tobacco abuse 11. History of Alcoholism. PLAN: We have started the patient with Protonix 40 mg once a day for GI prophylaxis, MiraLAX 17g daily for his bowel regimen. He is on multivitamins regimen for chronic pancreatitis. The patient is NPO currently, we have placed a general surgery consult for management of gallstones. The patient will be receiving IV fluids, normal saline at 125 ml per hour. Patient was counselled to quit smoking and alcohol completely. We will continue to monitor the plan of care per primary care provider. We will continue the patient closely. The above plan was discussed with Dr. Crump. Thank you for the consult. Please call us with any further questions or concerns. Dictated by MALINA Gan for Pablo Crump MD cc: MD Andi Ricks Jr, MD I have seen and examined the patient myself and I agree with the above plan of care. Discussed the above with the patient and all questions were answered. Please call us with any further questions or concerns. CHAVO
--- NOTE | 2019-03-28 20:43 | GENERAL SURGERY CONSULTATION ---
DATE: 03/28/2019 CHIEF COMPLAINT: Pancreatitis. REASON FOR CONSULTATION: Pancreatitis. HISTORY OF PRESENT ILLNESS: This is a 59-year-old gentleman who has chronic pancreatitis related to previous alcohol abuse. He has had recurrent bouts of this. He continues to drink up until 2 weeks ago at which point he says he stopped. Over the last several days he has developed worsening epigastric pain that radiates into his back. Denies any jaundice. No nausea or vomiting. No recent weight loss. He is known to Dr. Crump. Please also note that within the last 2 weeks he underwent a coronary angiography with stent placement and he has been started on Effient 10 mg p.o. daily. MEDICAL HISTORY: Coronary artery disease, diabetes, hypertension, chronic pancreatitis. SURGICAL HISTORY: No abdominal surgeries, but recent coronary stent. MEDICATIONS: Include Effient, as well as insulin and clonidine patch. SOCIAL HISTORY: Continues to smoke 40 pack-year, currently a pack a day. He drank alcohol daily up until 2 weeks ago. Denies any other IV drugs. FAMILY HISTORY: Family history was reviewed and negative for GI malignancy. REVIEW OF SYSTEMS: Ten point review of systems was performed as in HPI and negative other than what is mentioned HPI. PHYSICAL EXAMINATION: Vital signs: He is afebrile currently, pulse 50, blood pressure 150/88 oxygen is 98%. General: He is alert, in no acute distress. HEENT: No scleral icterus. No cervical mass. Cardiovascular: Normal rate. Pulmonary: No increased work of breathing. Abdomen: Soft, nontender, nondistended. Integument: Warm and dry without jaundice. Psychiatric: Appropriate affect. Neurologic: No gross deficits. Lymphatics: No cervical adenopathy, peripheral vascular in the lower extremities. LABORATORIES: White count 7, hematocrit 38, creatinine 0.7, glucose has been as high as 491. His bilirubin is normal. AST, ALT, alkaline phosphatase mildly elevated. Lipase 118. Leukocytes are positive. He has had an abdominal ultrasound that shows gallstones, but normal-caliber bile duct measuring 5 mm. On looking back in his record, he did have a CT scan in February that showed inflammation around the pancreas indicating pancreatitis. ASSESSMENT AND PLAN: A 59-year-old gentleman with pancreatitis, most likely this is alcohol in etiology. He has drank up until the last 2 weeks. We discussed this finding. He does have gallstones, but his symptoms are more consistent with pancreatitis. Given his recent coronary stent and Effient and ongoing pancreatitis, I think he would be high risk for cholecystectomy. He may ultimately benefit from this in the future, but we will observe him for now. Would recommend bowel rest, IV hydration. I would repeat a CT scan to ensure that he has not developed a pseudocyst or some other pancreatic necrosis issue. We will follow his liver function tests as well as lipase. I discussed the plan with the patient and he understands and agrees with it. We will monitor him going forward. cc: MD Andi Ledesma Jr, MD
[2019-03-29 07:18] LABS: BASO# 0.03 X1000 (0.0-0.2); BASO% 0.4 % (0.0-0.8); EOS# 0.55 X1000 (0.0-0.7); EOS% 7.4 % (0.0-10.0); HEMATOCRIT 40.1 % (42.0-52.0); HEMOGLOBIN 12.8 g/dL (14.0-18.0); LYMPH# 2.98 X1000 (1.2-3.4); LYMPH% 40.2 % (20.5-51.1); MCH 23.4 PG (27-31); MCHC 31.9 g/dL (33-37); MCV 73.3 FL (81-99); MONO# 0.73 X1000 (0.11-0.59); MONO% 9.8 % (1.7-9.3); MPV 11.5 FL (7.4-10.4); NEUT# 3.13 X1000 (1.4-6.5); NEUT% 42.2 % (42.2-75.2); PLT 215 X1000 (130-400); RBC 5.47 XMIL (4.7-6.1); RDW 13.6 % (11.5-14.5); WBC 7.42 X1000 (4.8-10.8)
[2019-03-29 07:36] LABS: AGAP 11; BUN 11 mg/dL (8-22); CALCIUM 8.6 mg/dL (8.8-10.2); CHLORIDE 101 mmol/L (98-107); COSMO 282; CREATININE 0.8 mg/dL (0.7-1.2); ESTIMATED GFR > 60; GLUCOSE 285 mg/dL (70-104); POTASSIUM 4.1 mmol/L (3.5-5.1); SODIUM 136 mmol/L (136-145); TCO2 24 mmol/L (25-35)
[2019-03-29 07:58] VITALS: BP 160/69
[2019-03-29] MEDS ORDERED: MIRALAX PO SCH (09:00)
[2019-03-29] MEDS ORDERED: CENTRUM SILVER PO SCH (09:00)
[2019-03-29] MEDS: LIPITOR PO SCH (09:02)
[2019-03-29] MEDS: LOPRESSOR PO SCH (09:02)
[2019-03-29] MEDS: EFFIENT PO SCH (09:02)
[2019-03-29] MEDS: CARDIZEM CD PO SCH (09:02)
[2019-03-29] MEDS: MONOPRIL PO SCH (09:02)
[2019-03-29] MEDS: PROTONIX IV SCH (09:03)
[2019-03-29] MEDS: ROCEPHIN 1 GM in NS 50 ML IV SCH (09:03)
[2019-03-29] MEDS: ASPIRIN PO SCH (09:03)
[2019-03-29] MEDS: NORVASC PO SCH (09:03)
--- NOTE | 2019-03-29 11:11 | DISCHARGE SUMMARY ---
ADMISSION DATE: 03/27/2019 DISCHARGE DATE: 03/29/2019 CONSULTATIONS: Gastroenterology, Dr. Crump, and surgery, Dr. Bahena. FINAL DIAGNOSES: 1. Alcoholic pancreatitis, now resolved. 2. Gallstones. 3. Diabetes mellitus. 4. Alcoholism. 5. Coronary artery disease. 6. Chronic obstructive pulmonary disease. 7. Hypertension. PLAN: We will discharge home on his home medications. I have encouraged him to stop all alcohol and have recommended AA meetings. HISTORY OF PRESENT ILLNESS AND HOSPITAL COURSE: The patient came in on the with abdominal pain and an elevated serum lipase. His amylase was normal. This was most consistent with his pancreatitis. He has chronic pancreatitis with acute pancreatitis on top of it. He had been drinking a few days before he came in that he admits to. He keeps telling me he has not been drinking in 6 weeks but he tells others he was drinking a few days ago so he was probably drinking right before he came in. PHYSICAL EXAMINATION: Vital signs show a blood pressure of 160/69, respirations 18, pulse 55, temperature 97.8 degrees Fahrenheit. HEENT: He is normocephalic. EOMs intact. PERRLA. Throat clear. Lungs are clear to auscultation and percussion without rhonchi, rales, or wheezes. Heart: Regular rate rhythm without murmurs, gallops, or friction rubs. Abdomen: Soft. Active bowel sounds. No organomegaly or tenderness today. He started eating solid foods yesterday. He is having no pain today and did not require any pain medication this morning. Neurologic: Examination intact grossly. DISCHARGE INSTRUCTIONS: Please see medication list. We will send him home on his home medications and see back in the office next week. Appreciate the help from the specialists. Surgery felt like he was a high risk to have his gallbladder taken out and that his symptoms were not consistent with any symptomatic gallstones. We have been waiting for him to be off alcohol long enough and his pancreatitis to resolve so that he could have surgery but he did have cardiac stents not too long ago and I think we should wait on this. cc: Andi Neal Jr, MD
[2019-03-31] MEDS ORDERED: CATAPRES-TTS-3 TD SCH (09:00)
== END 2019-03-29 09:39 | disposition home or self-care (01) | DRG 440 ==
LOC: ED 17:32 → 3N 22:17 → SUATTDRO 22:17
PROVIDERS: ADMIT Emergency Medicine; ATTEND Emergency Medicine

== ENCOUNTER 2019-05-30 11:44 | Inpatient (IN) ==
--- NOTE | 2019-05-30 12:52 | EKG Report ---
Test Performed on : 05/30/2019 12:05:40 PM Test Reason : CP Blood Pressure : / mmHG Vent. Rate : 091 BPM Atrial Rate : 091 BPM P-R Int : 162 ms QRS Dur : 098 ms QT Int : 358 ms P-R-T Axes : 058 -41 045 degrees QTc Int : 440 ms Normal sinus rhythm. Left axis deviation Voltage criteria for left ventricular hypertrophy Abnormal ECG When compared with ECG of 17-APR-2019 21:43, (Unconfirmed) Vent. rate has increased BY 32 BPM Unconfirmed Result
--- NOTE | 2019-05-30 13:19 | Diag Imaging Result Doc PS360 ---
EXAM: CHEST-2 VIEWS INDICATION: HTN TECHNIQUE: 2 views COMPARISON: 04/17/2019 FINDINGS: The lungs are grossly clear. There is no discrete pleural fluid collection or pneumothorax. The cardiomediastinal silhouette and central vasculature are grossly unremarkable. IMPRESSION: No evidence of acute pathology by plain radiograph. Electronically signed by Isael Olson 05/30/2019 1:17 PM
[2019-05-30 13:26] LABS: BASO# 0.03 X1000 (0.0-0.2); BASO% 0.3 % (0.0-0.8); EOS# 0.52 X1000 (0.0-0.7); HEMATOCRIT 41.4 % (42.0-52.0); HEMOGLOBIN 13.2 g/dL (14.0-18.0); IMM GRAN# 0.03 X1000 (0.0-0.04); IMM GRAN% 0.3 % (0.0-0.5); LYMPH# 3.13 X1000 (1.2-3.4); LYMPH% 35.9 % (20.5-51.1); MCH 23.7 PG (27-31); MCHC 31.9 g/dL (33-37); MCV 74.2 FL (81-99); MONO# 0.72 X1000 (0.11-0.59); MONO% 8.3 % (1.7-9.3); MPV 11.4 FL (7.4-10.4); NEUT# 4.29 X1000 (1.4-6.5); NEUT% 49.2 % (42.2-75.2); PLT 223 X1000 (130-400); RBC 5.58 XMIL (4.7-6.1); RDW 14.7 % (11.5-14.5); WBC 8.72 X1000 (4.8-10.8)
[2019-05-30 13:59] LABS: AGAP 14; ALB/GLOB RATIO 1.2; ALBUMIN 3.8 g/dL (3.5-5.0); ALKALINE PHOSPHATASE 216 U/L (32-122); BUN 15 mg/dL (8-22); CALCIUM 8.9 mg/dL (8.8-10.2); CHLORIDE 97 mmol/L (98-107); CK PROFILE 47 U/L (24-204); COSMO 287; ESTIMATED GFR > 60; GLUCOSE 390 mg/dL (70-104); GOT 37 U/L (10-34); GPT 37 U/L (10-44); POTASSIUM 4.2 mmol/L (3.5-5.1); SODIUM 135 mmol/L (136-145); TCO2 24 mmol/L (25-35); TOTAL BILIRUBIN 0.38 mg/dL (0.20-1.00); TOTAL PROTEIN 7.1 g/dL (6.3-8.3)
[2019-05-30 14:21] LABS: INR 0.96; PROTIME 12.8 Seconds (11.0-16.0)
[2019-05-30 14:22] LABS: PTT 28.6 Seconds (22.3-41.8)
[2019-05-30] MEDS ORDERED: LABETALOL IV ONE ×2 (14:54→17:55)
[2019-05-30 15:30] LABS: AMYLASE 135 U/L (20-200); LIPASE 149 U/L (13-60)
--- NOTE | 2019-05-30 16:06 | Diag Imaging Result Doc PS360 ---
CT ANGIOGRAM THORAX/ABD/PELVIS - 05/30/2019 INDICATION: Back and abdominal pain with HTN TECHNIQUE: Axial CT images were obtained after administering intravenous contrast. Coronal MIP images were generated. COMPARISON: CT from 03/07/2019 FINDINGS: There is no adenopathy. Heart and great vessels are normal. No pulmonary embolism. The lungs are clear. Bones are intact and well mineralized. The abdominal aorta and pelvic branches are all normal. There are couple small stones in the gallbladder. No gallbladder distention or inflammation. All other abdominal organs are normal. No bowel obstruction or inflammation. Urinary bladder, prostate, and rectum are normal. Normal appendix. There are moderate degenerative changes of the spine. No acute or suspicious bony lesion. IMPRESSION: Gallstones in the gallbladder. No acute disease. This exam was performed using automated exposure control, adjustment of mA or kV according to patient size, and/or use of iterative reconstruction technique Electronically signed by Go Sethi 05/30/2019 4:04 PM
[2019-05-30 16:17] LABS: URINE SOURCE CLEAN CATCH
[2019-05-30 16:34] LABS: UR AMPHETAMINES QUAL NONE DETECTED (NONE DETECT); UR BARBITUATES QUAL NONE DETECTED (NONE DETECT); UR BENZODIAZEPIN QUAL NONE DETECTED (NONE DETECT); UR CANNABINOIDS QUAL NONE DETECTED (NONE DETECT); UR COCAINE QUAL NONE DETECTED (NONE DETECT); UR METHADONE QUAL NONE DETECTED (NONE DETECT); UR OPIATES QUAL NONE DETECTED (NONE DETECT); UR OXYCODONE QUAL NONE DETECTED (NONE DETECT); UR PCP QUAL NONE DETECTED (NONE DETECT)
[2019-05-30 16:43] LABS: BILIRUBIN URINE NEGATIVE (NEGATIVE); BLOOD URINE SMALL (NEGATIVE); COLOR STRAW; GLUCOSE URINE >1000 mg/dL (NEGATIVE); KETONE URINE NEGATIVE (NEGATIVE); LEUKOCYTES URINE LARGE (NEGATIVE); NITRITE URINE NEGATIVE (NEGATIVE); PH URINE 6.5; PROTEIN URINE 70 mg/dL (NEGATIVE); TURBIDITY URINE HAZY (CLEAR); UROBILINOGEN URINE NORMAL (NORMAL)
[2019-05-30] MEDS ORDERED: MORPHINE IV ONE (16:44)
[2019-05-30] MEDS ORDERED: NS 1,000 ML IV ONE (16:50)
[2019-05-30] MEDS ORDERED: D50W SYRINGE IV PRN ×2 (16:50)
[2019-05-30] MEDS ORDERED: HUMULIN R IV ONE (16:52)
[2019-05-30 17:11] LABS: ALLEN TEST YES; BE 0.3 mmoll (-3.0-3.0); BLOOD TYPE ARTERIAL; HCO3-(ACT) 25.1 mmoll (20.0-26.0); METHB 1.2 % (0.0-1.5); O2(CT) 18.3 mL/dL (15.0-23.0); PCO2(98.6) 42 mmHg (35-45); PO2(98.6) 73 mmHg (60-100); SAMPLE BLOOD; SAO2 97.4 % (95.0-100.0); THB 13.8 g/dL (11.5-17.4); pH(98.6) 7.39 (7.35-7.45)
[2019-05-30 17:12] LABS: UR EPITHELIAL CELLS <10 /HPF (<10); URINE BACTERIA 2+ /HPF; URINE RBC <10 /HPF (<10); URINE WBC TNTC /HPF (<10)
[2019-05-30 17:12] LABS: MODALITY ROOM AIR
[2019-05-30 17:27] LABS: POTASSIUM 4.2 mmol/L (3.5-5.1)
[2019-05-30 17:28] LABS: ACETONE SERUM NEGATIVE (NEGATIVE)
[2019-05-30 17:56] LABS: SP GRAVITY URINE < 1.005
[2019-05-30] MEDS ORDERED: APRESOLINE IV ONE (18:34)
[2019-05-30] MEDS ORDERED: VASOTEC IV ONE (18:59)
[2019-05-30] MEDS ORDERED: AMIDATE ONE (19:09)
[2019-05-30] MEDS ORDERED: QUELICIN ONE (19:09)
--- NOTE | 2019-05-30 19:56 | PROVIDER DOCUMENTATION ---
This chart was entered by Bea Lucas Scribe, acting as scribe for Dayron Loco MD. HPI-General Adult - General Chief Complaint: Back Pain Stated Complaint: WEAKNESS,BACK PAIN Time Seen by Provider: 05/30/19 13:43 Source: patient Allergies/Adverse Reactions: Patient Allergies Allergy/AdvReac Type Severity Reaction Status Date / Time ampicillin Allergy Intermediate ITCHING Verified 05/30/19 14:33 naproxen Allergy Intermediate "PINS AND Verified 05/30/19 14:33 NEEDLES" Home Medications: Home Medication List Medication Instructions Recorded Confirmed Last Taken Type Cyclobenzaprine [Flexeril] 10 mg PO TID PRN 10/12/18 04/11/19 04/11/19 07:00 History Albuterol Sulfate [Albuterol 18 gm INHALATION Q2-4H PRN PRN #1 10/14/18 04/11/19 04/11/19 07:00 Rx Sulfate Hfa] hfa.aer.ad Amlodipine [Norvasc] 1 tab PO DAILY 02/09/19 04/11/19 04/11/19 07:00 History Clonidine Patch [Qhdawehi-Dbo-9] 1 ea TD Q7D 02/09/19 04/11/19 04/11/19 07:00 History Fluticasone/Vilant 200/25 INH 2 inh INH BID 02/09/19 04/11/19 04/11/19 07:00 History [Breo Ellipta 200/25 Mcg INH] Insulin Aspart [Novolog Flexpen] See Protocol SQ DIRECTED 02/09/19 04/11/19 04/11/19 07:00 History Metoprolol [Lopressor] 100 mg PO DAILY 02/09/19 04/11/19 04/11/19 07:00 History Doxycycline Hyclate 100 mg PO BID #20 cap 02/24/19 04/11/19 04/11/19 07:00 Rx ATORVAstatin [Lipitor] 40 mg PO DAILY 03/01/19 04/11/19 04/11/19 07:00 History Insulin Glargine,Hum.rec.anlog 30 units SQ BID 03/01/19 04/11/19 04/11/19 07:00 History [Lantus Solostar] Aspirin 1 tab PO DAILY 09/04/11/19 04/11/19 07:00 History Diltiazem HCl [Dilt-Xr] 1 cap PO BID 03/07/19 04/11/19 04/11/19 07:00 History Fosinopril Sodium 1 tab PO BID 03/07/19 04/11/19 04/11/19 07:00 History Hydrocodone/Acetaminophen [[place] 1 ea PO Q6H PRN #20 tab 03/10/19 04/11/19 04/11/19 07:00 Rx 10-325 Tablet] Prasugrel [Effient] 1 tab PO DAILY 03/27/19 04/11/19 04/11/19 07:00 History Methocarbamol [Robaxin] 500 mg PO BID #10 tab 04/11/19 Unknown Rx Sulfamethoxazole/Trimethoprim 1 ea PO BID #10 tab 04/17/19 Unknown Rx [Bactrim Ds Tablet] - History of Present Illness -Gen Adult Nature of Presenting Problems: Patient is a 59 y/o male presenting to the ED today c/o back pain and weakness. Patient reports onset of intermittent symptoms yesterday. Patient states pain is in the "middle" of his back and reports that this pain feels similarly to when he has had pancreatitis in the past. Patient denies N/V but reports decreased appetite. Patient rates current pain at 8/10. Patient reports he has some SOB but attributes this to a history of asthma. Patient reports he last had pancreatitis 2-3 months ago. Patient reports he has a history of chronic back pain from an accident 20-30 years ago but this feels different from his regular back pain. Patient reports he takes Clonidine and an oral hypertensive but reports he has not taken his oral hypertensive today, but his does have his clonadine patch on. Patient reports she stopped drinking alcohol a few months ago and smokes about 1 pack of cigarettes weekly. Patient denies chest pain, headache, fever and all other signs/symptoms. Location of Pain/Injury: reports: back Pain Radiation: reports: no radiation Onset/Duration: reports: 24 hours ago Timing: reports: still present Associated Symptoms: reports: back/neck pain, weakness, other (abdominal pain) Review of Systems - Adult - REVIEW OF SYSTEMS - ADULT Constitutional: denies: chills, fever Eyes: reports: no symptoms reported Ears, Nose, Mouth & Throat: reports: no symptoms reported Cardiovascular: denies: chest pain Respiratory: reports: shortness of breath. denies: cough Gastrointestinal: reports: abdominal pain, poor appetite. denies: diarrhea, nausea, vomiting Genitourinary: reports: no symptoms reported Musculoskeletal: reports: back pain Integumentary: reports: no symptoms reported Neurological: reports: no symptoms reported Psychiatric: reports: no symptoms reported Endocrine: reports: no symptoms reported Hematologic/Lymphatic: reports: no symptoms reported Allergic/Immunologic: reports: no symptoms reported Past History - Adult - PAST MEDICAL HISTORY-ADULT Review of Records: reports: Old Records Reviewed Major Childhood Illnesses: reports: denies history Cardiovascular: reports: HTN, [place] Respiratory: reports: denies history Gastrointestinal: reports: pancreatitis Obstetrical/Gynecological: reports: denies history Genitourinary: reports: denies history Musculoskeletal: reports: arthritis, other (gout) Neurological: reports: CVA Endocrine/Immune: reports: Diabetes Other Conditions: reports: denies history - PRIOR SURGERIES/PROCEDURES Surgical/Procedure History: reports: reviewed, not pertinent - IMMUNIZATION STATUS Childhood Immunizations: See Nurse Assessment Flu Vaccine: See Nurse Assessment - FAMILY HISTORY Family History: reviewed, not pertinent Physical Exam-General - PHYSICAL EXAM-ADULT Initial Vital Signs Reviewed: Yes - CONSTITUTIONAL General Appearance: alert, no apparent distress - EYES Eyes: negative: conjuctival exudate, sclera injected, scleral icterus - HEAD, EARS, NOSE, MOUTH & THROAT HENMT: normocephalic/atraumatic, moist mucous membranes, pharynx normal - NECK Neck: normal inspection - RESPIRATORY Respiratory: lungs clear, no respiratory distress, no accessory muscle use - CARDIOVASCULAR Cardiovascular: regular rate, rhythm, no edema, no murmur - GASTROINTESTINAL (ABDOMEN) Abdominal Exam: soft, tenderness (RUQ, RLQ, and epigastric). negative: guarding, rebound - SKIN Integumentary: normal color, warm/dry - NEUROLOGIC Neurologic: grossly normal - PSYCHIATRIC Psych/Mental Status: normal mood/affect, normal thought content, normal thought process Progress - PLAN OF CARE/RESULTS Progress/Plan/Lab Results: Vital Signs - 8 hr 05/30/19 11:52 Temperature 97.9 F Pulse Rate 97 H Respiratory Rate 18 Blood Pressure 210/83 O2 Sat by Pulse Oximetry 96 Laboratory Results - last 24 hr 05/30/19 05/30/19 05/30/19 13:02 13:02 13:02 WBC 8.72 RBC 5.58 Hgb 13.2 L Hct 41.4 L MCV 74.2 L MCH 23.7 L MCHC 31.9 L RDW Std Deviation 14.7 H Plt Count 223 MPV 11.4 H Immature Gran % (Auto) 0.3 Neut % (Auto) 49.2 Lymph % (Auto) 35.9 [place] % (Auto) 8.3 Eos % (Auto) 6.0 Baso % (Auto) 0.3 Immature Gran # (Auto) 0.03 Neut # (Auto) 4.29 Lymph # (Auto) 3.13 [place] # (Auto) 0.72 H Eos # (Auto) 0.52 Baso # (Auto) 0.03 Sodium 135 L Potassium 4.2 Chloride 97 L Carbon Dioxide 24 L Anion Gap 14 BUN 15 Creatinine 1.0 Estimated GFR/1.73 m2 > 60 BUN/Creatinine Ratio 15 Glucose 390 H Calculated Osmolality 287 Calcium 8.9 Total Bilirubin 0.38 AST 37 H ALT 37 Alkaline Phosphatase 216 H Creatine Kinase 47 Troponin T Roi-T-Eeryhdwqaju Pept 140 Total Protein 7.1 Albumin 3.8 Globulin 3.3 Albumin/Globulin Ratio 1.2 05/30/19 13:02 WBC RBC Hgb Hct MCV MCH MCHC RDW Std Deviation Plt Count MPV Immature Gran % (Auto) Neut % (Auto) Lymph % (Auto) [place] % (Auto) Eos % (Auto) Baso % (Auto) Immature Gran # (Auto) Neut # (Auto) Lymph # (Auto) [place] # (Auto) Eos # (Auto) Baso # (Auto) Sodium Potassium Chloride Carbon Dioxide Anion Gap BUN Creatinine Estimated GFR/1.73 m2 BUN/Creatinine Ratio Glucose Calculated Osmolality Calcium Total Bilirubin AST ALT Alkaline Phosphatase Creatine Kinase Troponin T < 0.010 Uzx-F-Feddvsifacn Pept Total Protein Albumin Globulin Albumin/Globulin Ratio Orders Category Date Time Status Cardiac Monitoring DIRECTED Care 05/30/19 12:49 Active Misc. NRSG Communication Order DIRECTED Care 05/30/19 13:57 Active Oxygen Therapy- ED Nursing DIRECTED Care 05/30/19 12:49 Active Saline Loc NOW Care 05/30/19 12:49 Active CHEST-2 VIEWS [RAD] Stat Exams 05/30/19 12:49 Completed CBC WITH ELECTRONIC DIFF [HEME] Stat Lab 05/30/19 13:02 Completed CK PROFILE [SP CHEM] Stat Lab 05/30/19 13:02 Completed COMPREHENSIVE METABOLIC PANEL [CHEM] Stat Lab 05/30/19 13:02 Completed PRO B-NATRIURETIC PEPTIDE Stat Lab 05/30/19 13:02 Completed PROTIME WITH INR [COAG] Stat Lab 05/30/19 13:02 Received PTT [COAG] Stat Lab 05/30/19 13:02 Received TROPONIN T Stat Lab 05/30/19 13:02 Completed CP/SOB/Palp >45 yrs of Age Stat Oth 05/30/19 12:49 Ordered EKG [EKG] Stat Ther 05/30/19 12:49 Draft Result Diagrams: 05/30/19 13:02 05/30/19 13:02 - REASSESSMENT Reassessment #1 Status: other (Given refractory HTN to multiple IV medications disucssed case with hospitalist team who agreed to admission and recomended trial of enalipril. Will admit patient for resistant hypertension.) - EKG 1 Time of EKG reading by physician:: 12:05 EKG Read and Signed by:: Dayron Loco EKG Interpretation (*Must complete 3 of following elements*): Abnormal Rate: 91 Rhythm: Normal sinus rhythm [place]: left ST Wave: non-specific ST changes Comments: No STEMI - XRAY 1 XRAY Study: Chest Impression: See EMR Report (EXAM: CHEST-2 VIEWS INDICATION: HTN TECHNIQUE: 2 views COMPARISON: 04/17/2019 FINDINGS: The lungs are grossly clear. There is no discrete pleural fluid collection or pneumothorax. The cardiomediastinal silhouette and central vasculature are grossly unremarkable. IMPRESSION: No evidence of acute pathology by plain radiograph. Electronically signed by Isael Olson 05/30/2019 1:17 PM 05/30/19 1317 Interpreting Physician: Isael Olson MD Dictated Date/Time: 05/30/19 1316 cc: Debora Contreras MD; Andi Neal Jr, MD) - CT/MRI 1 CT Study: Abdomen Impression: See EMR Report (CT ANGIOGRAM THORAX/ABD/PELVIS - 05/30/2019 INDICATION: Back and abdominal pain with HTN TECHNIQUE: Axial CT images were obtained after administering intravenous contrast. Coronal MIP images were generated. COMPARISON: CT from 03/07/2019 FINDINGS: There is no adenopathy. Heart and great vessels are normal. No pulmonary embolism. The lungs are clear. Bones are intact and well mineralized. The abdominal aorta and pelvic branches are all normal. There are couple small stones in the gallbladder. No gallbladder distention or inflammation. All other abdominal organs are normal. No bowel obstruction or inflammation. Urinary bladder, prostate, and rectum are normal. Normal appendix. There are moderate degenerative changes of the spine. No acute or suspicious bony lesion. IMPRESSION: Gallstones in the gallbladder. No acute disease. This exam was performed using automated exposure control, adjustment of mA or kV according to patient size, and/or use of iterative reconstruction technique Electronically signed by Go Sethi 05/30/2019 4:04 PM 05/30/19 1604 Interpreting Physician: Go Sethi MD Dictated Date/Time: 05/30/19 1533 cc: Dayron Loco MD; Andi Neal Jr, MD) Departure - Departure Date of Disposition Decision: 05/30/19 Time of Disposition Decision: 19:37 DIAGNOSIS: Hypertensive urgency Disposition: ADMITTED INPATIENT 09 Certified Medical Emergency: Emergent Condition: Fair Referrals and Follow-Ups: Andi Neal Jr, MD [Primary Care Provider] - - Critical Care Note This patient required my direct & personal management of CC.: No Attestation - Physician/ LASHONDA Attestation Patient care was provided by Advanced Practice Provider:: No The physician spent face to face time with patient:: Yes Advanced Practice Provider documentation review:: Supervising physician onsite and consulted in the evaluation and care of this patient. The physician did have a face to face encounter with the patient. This chart was documented by the indicated scribe, (Bea Lucas Scribe) and accurately reflects the services I performed and decisions made by me, Dayron Loco MD, as attested by the provider's signature.
[2019-05-30] MEDS ORDERED: PROTONIX IV ONE (22:26)
[2019-05-30] MEDS ORDERED: HUMALOG SUBQ ONE (22:26)
[2019-05-30] MEDS ORDERED: SODIUM CHLORIDE 0.9% INJ ONE (22:26)
[2019-05-30] MEDS ORDERED: APRESOLINE IV PRN (22:26)
[2019-05-30] MEDS ORDERED: MORPHINE IV PRN (22:26)
[2019-05-30] MEDS ORDERED: NS + KCL 20 MEQ 1,000 ML IV ONE (22:26)
[2019-05-30] MEDS ORDERED: CARDIZEM CD PO ONE (22:26)
[2019-05-30] MEDS: LANTUS INSULIN SUBQ SCH (23:23)
[2019-05-30] MEDS: LEVAQUIN 500 MG in NS 100 ML IV SCH (23:57)
[2019-05-30] MEDS: MONOPRIL PO SCH (23:57)
[2019-05-31 07:11] LABS: BASO# 0.04 X1000 (0.0-0.2); BASO% 0.5 % (0.0-0.8); EOS# 0.44 X1000 (0.0-0.7); EOS% 5.3 % (0.0-10.0); HEMATOCRIT 37.7 % (42.0-52.0); HEMOGLOBIN 11.8 g/dL (14.0-18.0); IMM GRAN# 0.03 X1000 (0.0-0.04); IMM GRAN% 0.4 % (0.0-0.5); LYMPH# 2.86 X1000 (1.2-3.4); LYMPH% 34.6 % (20.5-51.1); MCH 23.4 PG (27-31); MCHC 31.3 g/dL (33-37); MCV 74.7 FL (81-99); MONO# 0.81 X1000 (0.11-0.59); MONO% 9.8 % (1.7-9.3); MPV 10.6 FL (7.4-10.4); NEUT# 4.08 X1000 (1.4-6.5); NEUT% 49.4 % (42.2-75.2); PLT 194 X1000 (130-400); RBC 5.05 XMIL (4.7-6.1); RDW 14.9 % (11.5-14.5); WBC 8.26 X1000 (4.8-10.8)
--- NOTE | 2019-05-31 07:13 | HISTORY AND PHYSICAL ---
CHIEF COMPLAINT: Back pain and weakness. HISTORY OF PRESENT ILLNESS: A 59-year-old gentleman complaining of back pain that started yesterday. Today, pain was moderate to severe. The patient was also complaining of weakness in the lower body. The patient described pain similar to when he had pancreatitis in the past. The patient claimed the pain was making him restless. He was not able to lay flat. He was up and down. His pain medication was not helping. The patient denied any nausea or vomiting. No dysuria or hematuria. Denied any high-grade fever. The patient did have some chills. The patient came to the emergency room. He was given pain medication. The pain got some better. His blood pressure was initially high, but then it went up higher. The patient was given IV blood pressure medicine without significant relief. Because of significant hypertension, back pain, not responding to treatment in the ER and also at home, ER physician decided to admit the patient. The patient claims he quit drinking alcohol 3 months ago. He is also trying to quit smoking. He denied any typical chest pain, palpitations, orthopnea, or PND. Does have mild cough. No expectoration or hemoptysis. No abdominal distention. No leg swelling. Denied any heat or cold intolerance. At times, polyuria, polydipsia. Blood sugar was staying high. No major hypoglycemic episode. Denied being depressed. No suicidal or homicidal ideation. No runny nose, stuffy nose, sinus drainage. No further history available at this time. ALLERGIES: The patient is allergic to ampicillin and naproxen. PAST MEDICAL HISTORY: Significant for recurrent pancreatitis, history of gallstone, history suggestive of hypertension, diabetes mellitus, coronary artery disease. CURRENT MEDICATIONS: Include albuterol inhaler, Norvasc, Cardizem CD 120 mg p.o. b.i.d., aspirin, Effient, Lipitor 40 mg daily, clonidine patch 3 mg every 7 days, Flexeril 10 mg p.o. b.i.d., Monopril 40 mg p.o. b.i.d., Cyclone 10 mg every 6 hours, NovoLog FlexPen, Lantus SoloStar 30 units subcutaneously b.i.d., metoprolol 100 mg daily. SOCIAL HISTORY: The patient has a [id number] history of smoking, but he is trying to quit. He used to drink regularly, but not drinking for the last 3 months. Denied any drug use. Not working for the last few months. FAMILY HISTORY: Significant for coronary artery disease. REVIEW OF SYSTEMS: As per HPI, otherwise unobtainable. PHYSICAL EXAMINATION: GENERAL: Middle-aged gentleman in mild distress. VITAL SIGNS: Blood pressure 179/103, pulse 73, respirations 14, temperature 97.9 degrees. SKIN: Normal turgor. No rash or petechiae. HEENT: Head atraumatic, normocephalic. [place] conjunctivae. [place] sclerae. Extraocular muscle movement normal. Fundus cannot be penetrated. Good oral hygiene. No tonsillopharyngeal congestion or exudate. Ears and nose benign. NECK: Supple. No JVD, thyromegaly, or lymphadenopathy. CHEST: Bibasilar crepitation. No rales. CARDIOVASCULAR: S1 and S2 heard. A 2/6 systolic murmur at the apex. ABDOMEN: Soft, globular. Bowel sounds present. EXTREMITIES: No cyanosis, clubbing. No acute DVT. Peripheral pulsation intact. Vague tenderness, lumbar spine. CENTRAL NERVOUS SYSTEM: Alert, awake, able to move all 4 limbs. LABORATORY DATA: Blood sugar of 390, sodium 135, potassium 4.2, alkaline phosphatase was 216. Lipase was elevated at 149. Cardiac isoenzymes negative. Urinalysis did reveal too numerous to count WBCs and large leukocytes suggestive of UTI. Urine drug screen was negative. The patient was supposed to be on Cyclone 10. CBC result reviewed. Blood gas result also noted. ASSESSMENT AND PLAN: Patient admitted with back pain. Lipase minimally elevated. The patient does have chronic pancreatitis, history suggestive of gallstone, hypertensive emergency, urinalysis suggestive of urinary tract infection, significant low back pain, history of coronary artery disease, diabetes mellitus. I started the patient on a smaller dose of Lantus insulin. Will continue sliding scale insulin. Optimize blood pressure medicine, pain control, Protonix. Continue Effient. The patient had CTA done; result reviewed. His chest x-ray shows no evidence of acute pathology. I encouraged the patient to quit smoking. Dr. Neal will take care of the patient from tomorrow. cc: Eduardo Cabral MD
[2019-05-31 07:30] LABS: HEMOGLOBIN A1C 12.2 % (4.8-6.0)
[2019-05-31 07:35] LABS: AGAP 14; ALB/GLOB RATIO 0.9; ALBUMIN 3.1 g/dL (3.5-5.0); ALKALINE PHOSPHATASE 144 U/L (32-122); AMYLASE 91 U/L (20-200); BUN 9 mg/dL (8-22); C REACTIVE PROT QUANT 1.02 mg/L (0.00-5.00); CALCIUM 8.5 mg/dL (8.8-10.2); CHLORIDE 100 mmol/L (98-107); COSMO 280; CREATININE 0.8 mg/dL (0.7-1.2); ESTIMATED GFR > 60; GLUCOSE 238 mg/dL (70-104); GOT 34 U/L (10-34); GPT 32 U/L (10-44); LIPASE 16 U/L (13-60); MAGNESIUM 1.6 mg/dL (1.5-2.7); PHOSPHORUS 2.9 mg/dL (2.7-4.5); SODIUM 137 mmol/L (136-145); TCO2 23 mmol/L (25-35); TOTAL BILIRUBIN 0.46 mg/dL (0.20-1.00); TOTAL PROTEIN 6.4 g/dL (6.3-8.3)
[2019-05-31] MEDS ORDERED: SOLU-MEDROL IV ONE (08:18)
[2019-05-31] MEDS: MONOPRIL PO SCH ×2 (08:36→20:16)
[2019-05-31] MEDS: TOPROL XL PO SCH (08:36)
[2019-05-31] MEDS: EFFIENT PO SCH (08:36)
[2019-05-31] MEDS: LANTUS INSULIN SUBQ SCH (10:20)
--- NOTE | 2019-05-31 12:45 | PROGRESS NOTE ---
DATE: 05/31/2019 SUBJECTIVE: The patient says his back pain is better. He was admitted last night with back pain, UTI and hypertensive crisis. He had not taken his blood pressure medicines yesterday and his blood pressure was over 200 systolic and around 120 diastolic. It did not come down easily so it was felt that he needed to be admitted to the hospital. His back pain also had continued but is better this morning. He says it is about a 5 or 6/10. He also has a urinary tract infection and is being treated with IV antibiotics and he has uncontrolled diabetes. His urinalysis shows WBCs too numerous to count, and culture is pending. His hemoglobin A1c is. 12.2, electrolytes essentially normal. Blood sugars have been high. White count is 8260, hemoglobin 11.8, hematocrit 37.7. OBJECTIVE: Vital Signs: Blood pressure this morning is 157/82, respirations 18, pulse 65, temperature 97.8 degrees Fahrenheit. HEENT: Normocephalic. EOMs intact. PERRLA. Throat clear. Lungs: Clear to auscultation and percussion without rhonchi, rales, or wheezes. Heart: Regular rate and rhythm without murmurs, gallops, friction rubs. Abdomen: Soft. Active bowel sounds. No organomegaly or tenderness. A CT angiogram of the thorax, abdomen and pelvis shows some gallstones which we have known about and some degenerative changes in the spine and otherwise was normal. Neurological: Intact grossly. PLAN: We are starting back his home antihypertensive medications. Continue IV antibiotics. cc: MD Eduardo Cavanaugh Jr, MD
[2019-05-31] MEDS: HUMALOG SUBQ SCH ×2 (17:21→21:51)
[2019-05-31] MEDS ORDERED: LANTUS INSULIN SUBQ SCH (21:00)
[2019-06-01] MEDS: LEVAQUIN 500 MG in NS 100 ML IV SCH (00:02)
[2019-06-01] MEDS: HUMALOG SUBQ SCH (08:19)
[2019-06-01] MEDS: TOPROL XL PO SCH (08:19)
[2019-06-01] MEDS: EFFIENT PO SCH (08:19)
[2019-06-01] MEDS: MONOPRIL PO SCH (08:19)
[2019-06-01] MEDS ORDERED: LANTUS INSULIN SUBQ SCH (09:00)
[2019-06-01 11:29] VITALS: BP 182/114
--- NOTE | 2019-06-02 07:37 | DISCHARGE SUMMARY ---
ADMISSION DATE: 05/30/2019 DISCHARGE DATE: 06/01/2019 FINAL DIAGNOSES: 1. Low back pain. 2. Hypertensive emergency. 3. Pyuria. SECONDARY DIAGNOSES: 1. Hyperlipidemia. 2. Coronary artery disease. 3. Gallstones. 4. Hypertension. 5. Diabetes mellitus. 6. Noncompliance. He has had a history of chronic pancreatitis. He quit drinking about 3 months ago but had been a very heavy drinker. He has been a heavy smoker but has not quit smoking yet. The patient presented with the low back pain and questionable UTI. Urine culture is negative. The patient is uncircumcised and he says he has a little irritation around the foreskin at times. That may have been why there was pus in the urine. He had no symptoms of a urinary tract infection. He was placed on IV antibiotics initially. He still has no symptoms with this. I do not think he has a urinary tract infection. I did give him some IV Solu-Medrol. His back pain has gone away completely. Blood sugars have been high. He needs to take his medicines at home and he needs to quit smoking. We will see him back over in the office and discuss his back further. He remembers no injury of his back, he just started hurting. He had not taken his blood pressure medications the day that he came in with his back and his blood pressure was very high. OBJECTIVE: Blood pressure today is 158/81, respirations 16, pulse 66, temperature 97.5 degrees Fahrenheit. HEENT: Normocephalic. EOMs intact. PERRLA. Throat clear. Lungs: Clear to auscultation and percussion without rhonchi, rales, or wheezes. Heart: Regular rate and rhythm without murmurs, gallops, friction rubs. Abdomen: Soft. Active bowel sounds. No organomegaly or tenderness. Neurological: Intact grossly. Patient is up walking around with no discomfort at all at this time. I having talked with him about how important it is for him to take his medicines every day. I will discharge home and see him back in the office within the next week to 10 days. cc: MD Eduardo Cavanaugh Jr, MD
== END 2019-06-01 11:53 | disposition home or self-care (01) | DRG 305 ==
LOC: ED 11:44 → 4N 22:16
PROVIDERS: ADMIT Internal Medicine; ATTEND Emergency Medicine